=== PATIENT | male | born 1995 | race Caucasian/White ===

== ENCOUNTER 2021-07-03 17:32 | Emergency (ER) | payer SELFPAY ==
[2021-07-03 17:35] VITALS: PULSE 101; RESP 18; TEMP 37.1; O2SAT 98; BMI 25.1
[2021-07-03 17:38] VITALS: PULSE 101; RESP 18; O2SAT 98
[2021-07-03 17:41] VITALS: O2SAT 98
--- NOTE | 2021-07-03 18:17 | EKG12_ITS ---
Test Reason : SOB Blood Pressure : / mmHG Vent. Rate : 093 BPM Atrial Rate : 093 BPM P-R Int : 128 ms QRS Dur : 098 ms QT Int : 368 ms P-R-T Axes : 018 042 050 degrees QTc Int : 457 ms Normal sinus rhythm Normal ECG No previous ECGs available Confirmed by MARTÍNEZ CONTEH, BRANDT ([id number]), image editor CHUCK PAINTER ([id number]) on 07/12/2021 10:03:39 AM Referred By: IRVING Confirmed By:BRANDT SOLIZ MD
[2021-07-03] MEDS: 0.9% Normal Saline 1,000 ML 999 ML IV (18:41)
[2021-07-03] MEDS: LORazepam 2 MG/ML Syringe 1 MG IV ×2 (18:42→19:06)
[2021-07-03 18:53] LABS: Absolute Lymphocyte Count 1.63 X10^3/uL (0.83-4.51); Absolute Neutrophil Count 4.5 X10^3/uL (2.0-7.7); Basophil# 0.02 X10^3/uL; Basophil% 0.3 % (0-1); Eosinophil# 0.01 X10^3/uL; Eosinophils% 0.1 % (0-5); Hematocrit 42.1 % (40-54); Hemoglobin 15.1 g/dL (13.0-16.5); Lymphocyte # 1.63 X10^3/ul (0.83-4.51); Lymphocyte % 23.6 % (19-41); Mean Corp Hgb Conc 35.9 g/dL (32-36); Mean Corpuscular Hgb 31.7 pg (27.0-32.0); Mean Corpuscular Volume 88.4 fL (80-94); Mean Platelet Vol. 8.7 fl (6.2-12.0); Monocyte# 0.72 X10^3/uL; Monocyte% 10.4 % (0-10); NRBC Flagged by Analyzer 0 % (0-5); Neutrophil # 4.49 X10^3/uL (2.7-7.7); Neutrophil % 65.2 % (47-70); Platelet Count 342 K/mm3 (150-450); RBC Distribution Width SD 38.8 fl (35.1-43.9); Red Blood Count 4.76 M/mm3 (4.6-6.2); White Blood Count 6.9 K/mm3 (4.4-11.0)
--- NOTE | 2021-07-03 18:54 | CM.ED ---
MC Note Referral Source: Case Find Referral Reason: No insurance and No PCP SW met briefly with patient in his room. SW provided patient with list of [facility] Directory and Self Pay Packet. No other issues or concerns voiced. Plan: Provided PCP/Self Pay information Mckenzie MOREJON
--- NOTE | 2021-07-03 19:15 | RAD_ITS ---
STUDY: X-RAY CHEST REASON FOR EXAM: Male, 25 years old. Dyspnea. Numbness and tingling in both arms. Shortness of breath MAY knows and recent cough. Anxiety. TECHNIQUE: PA and lateral views of the chest. COMPARISON: None. FINDINGS: The lungs are clear and expanded. There is no demonstrated pleural abnormality. Normal size heart. Normal mediastinum and maye. Normal visualized pulmonary arteries. Normal visualized aortic arch and descending thoracic aorta. There is dextroscoliosis of the thoracic spine. Normal visualized ribs, clavicles, and shoulders. There is no demonstrated abnormality of the visualized soft tissue structures of the upper abdomen. RAD/Chest PA and Lateral IMPRESSION: No acute cardiopulmonary disease. Electronically Signed: César Carbajal DO at 19:35 EDT Tel [phone], Service support ,
[2021-07-03 19:18] LABS: Anion Gap 12 (5-15); BUN 6 mg/dL (7-18); BUN/Creat Ratio 6.9 RATIO (10-20); Calcium,Total 9.6 mg/dL (8.5-10.1); Chloride 101 mmol/L (98-107); Creatinine, Serum 0.87 mg/dL (0.70-1.30); EST Glomerular Filtration Rate 111 mL/min (>60); Est Glom Filt Rate - Afr Amer 134 mL/min (>60); Estimated Creatinine Clearance 135.84 ml/min; Glucose 81 mg/dL (74-106); Magnesium 1.9 mg/dL (1.6-2.6); Potassium 3.4 mmol/L (3.5-5.1); Sodium Level 139 mmol/L (136-145); Thyroid Stim Hormone (TSH) 2.32 uIU/mL (0.358-3.74)
[2021-07-03 20:01] VITALS: PULSE 90; RESP 16; O2SAT 99
--- NOTE | 2021-07-03 20:59 | EDS_ITS ---
HPI History of Present Illness Chief Complaint: Shortness of Breath Narrative Narrative: Patient is a 25-year-old male who states that today after leaving work he had sudden onset anxiety feelings with increased shortness of breath and contractures of his arms. He does report nicotine use but denies any known lung pathology. He also admits to having anxiety but never officially diagnosed by a psychiatrist or family doctor. He reports has been no new stressors and he denies any excessive stimulant such as caffeine or illicit drug. He reports he feels better at this time but with the event occurring was concerned presents for evaluation [facility] Medical History Alcohol abuse Anxiety Smoker Home Medications escitalopram oxalate [Lexapro] 10 mg PO DAILY #30 tab 07/03/21 [Rx Last Taken Unknown] Allergy/AdvReac Type Severity Reaction Status Date / Time No Known Allergies Allergy Verified 07/03/21 17:34 Social History Smoking Status: Current every day smoker tobacco type: e-cigarettes ROS ROS ED Constitutional Constitutional ED: Denies chills or fever(s) ENT ENT ED: Denies sore throat Cardiovascular Cardiovascular: Reports palpitations and racing heartbeat; Denies chest pain Respiratory/Chest Respiratory/Chest: Reports dyspnea; Denies cough Gastrointestinal Gastrointestinal: Denies abdominal pain, diarrhea, nausea or vomiting Genitourinary Genitourinary ED: Denies dysuria Musculoskeletal Musculoskeletal: Reports myalgias Integumentary Denies rash Neurologic Neurologic: Denies headache(s) Psychiatric Psychiatric: Reports anxiety Hematologic/Lymphatic Hematologic/Lymphatic: Denies easy bleeding or easy bruising EXAM Physical Exam Const Vital Signs: 07/03/21 17:35 07/03/21 17:38 07/03/21 17:41 Temperature 98.8 F Temperature Source Temporal Pulse Rate 101 H 101 H Respiratory Rate 18 18 Respiratory Effort Normal Respiratory Depth Normal Respiratory Pattern Normal Blood Pressure Pulse Ox 98 98 Oxygen Delivery Method Room Air Room Air 07/03/21 20:01 07/03/21 21:11 Temperature Temperature Source Pulse Rate 90 90 Respiratory Rate 16 14 Respiratory Effort Respiratory Depth Respiratory Pattern Blood Pressure 130/78 H Pulse Ox 99 99 Oxygen Delivery Method Room Air Positive well nourished and well developed General Appearance ED: well developed HEENT Reports moist mucous membranes HEENT Narrative: No tongue or lip swelling no oral lesions no airway edema or compromise Eyes PERRL and EOMs intact bilaterally Neck supple Chest Wall palpation of chest normal Resp normal respiratory effort and clear to auscultation bilaterally Cardio regular rate and regular rhythm GI normal to inspection, nondistended, normoactive bowel sounds, non-tender and non-distended Auscultation: normoactive bowel sounds Palpation: soft Extremity normal to inspection Extremity Narrative: No asymmetric edema no pitting edema negative Homans' sign bilaterally Neuro oriented x3 and CN's II-XII intact bilaterally Sensorium / Orientation: alert Motor Exam: strength 5/5 throughout Psych Mood & Affect: anxious Skin no rashes or lesions noted MDM MDM MDM Narrative Medical decision making narrative: Patient to the ER with stable vitals and spontaneous resolution of symptoms. However during the physical exam he stated he was beginning to feel similar symptoms to when he had the attack at work. Therefore patient underwent a basic cardiac work-up. Labs revealed no clinically significant findings and chest x-ray revealed no obvious infiltrate pneumothorax or pleural effusion. Patient was given IV fluids and 2 mg of Ativan and did report feeling better. Therefore this time with overall negative work-up I do feel her symptoms are anxiety related and he will be placed on Lexapro and is safe for discharge Lab Data Attestation: I reviewed the patient's lab results. Labs: Laboratory Results - last 24 hr 07/03/21 07/03/21 18:40 18:40 WBC 6.9 RBC 4.76 Hgb 15.1 Hct 42.1 MCV 88.4 MCH 31.7 MCHC 35.9 RDW Std Deviation 38.8 RDW Coeff of Lance 12.0 Plt Count 342 MPV 8.7 Immature Gran % (Auto) 0.400 Neut % (Auto) 65.2 Lymph % (Auto) 23.6 [place] % (Auto) 10.4 H Eos % (Auto) 0.1 Baso % (Auto) 0.3 Absolute Neuts (auto) 4.5 Absolute Lymphs (auto) 1.63 Nucleated RBC % 0 Sodium 139 Potassium 3.4 L Chloride 101 Carbon Dioxide 26.0 Anion Gap 12 BUN 6 L Creatinine 0.87 Estim Creat Clear Calc 135.84 Est GFR (MDRD) Af Amer 134 Est GFR (MDRD) Non-Af 111 BUN/Creatinine Ratio 6.9 L Glucose 81 Calcium 9.6 Magnesium 1.9 TSH 2.32 Radiography Diagnostic Testing: Clinical Impression(s) from Imaging Studies Chest X-Ray 07/03/21 19:15 IMPRESSION: No acute cardiopulmonary disease. Electronically Signed: César Carbajal DO at 19:35 EDT Tel [phone], Service support , Discharge Plan Triage Chief Complaint: Shortness of Breath ED Provider: Anjel Gutiérrez Dx/Rx/DC Orders Clinical Impression: Anxiety attack Instructions: ED Anxiety Reaction Prescriptions: New escitalopram oxalate [Lexapro] 10 mg tablet 10 mg PO DAILY Qty: 30 RF: 1 Primary Care Provider: Care Physician,No Primary Referrals: Peyman Martínez MD [STAFF PHYSICIAN] - 3-5 Days if not improving Care Physician,No Primary [Primary Care Provider] - Disposition Disposition: Home, Self Care Discharge Date/Time: 07/03/21 21:12
[2021-07-03 21:11] VITALS: BP 130/78; PULSE 90; RESP 14; O2SAT 99
== END 2021-07-03 21:12 | disposition home or self-care (01) ==
PROVIDERS: Emergency Provider Emergency Medicine
DX: F41.9 Anxiety disorder, unspecified (principal); F17.210 Nicotine dependence, cigarettes, uncomplicated; Z79.899 Other long term (current) drug therapy
CPT/HCPCS: 71046; 80048; 83735; 84443; 85025; 93005; 96361; 96374; 96376; 99283; J7030; A4216

== ENCOUNTER 2022-02-15 18:56 | Inpatient (IN) | payer OTHER, SELFPAY ==
[2022-02-15 18:57] VITALS: BP 142/103; PULSE 108; RESP 18; TEMP 36.4; O2SAT 97; BMI 24.4
[2022-02-15 19:11] VITALS: RESP 16
[2022-02-15 19:26] LABS: Absolute Lymphocyte Count 1.46 X10^3/uL (0.83-4.51); Absolute Neutrophil Count 3.4 X10^3/uL (2.0-7.7); Basophil# 0.04 X10^3/uL; Basophil% 0.7 % (0-1); Eosinophil# 0.04 X10^3/uL; Eosinophils% 0.7 % (0-5); Hematocrit 46.6 % (40-54); Hemoglobin 16.7 g/dL (13.0-16.5); Lymphocyte # 1.46 X10^3/ul (0.83-4.51); Lymphocyte % 25.5 % (19-41); Mean Corp Hgb Conc 35.8 g/dL (32-36); Mean Corpuscular Hgb 33.3 pg (27.0-32.0); Mean Corpuscular Volume 92.8 fL (80-94); Mean Platelet Vol. 9.3 fl (6.2-12.0); Monocyte# 0.78 X10^3/uL; Monocyte% 13.6 % (0-10); NRBC Flagged by Analyzer 0 % (0-5); Neutrophil % 59.3 % (47-70); Platelet Count 247 K/mm3 (150-450); RBC Distribution Width CV 11.9 % (11.6-14.6); RBC Distribution Width SD 40.5 fl (35.1-43.9); Red Blood Count 5.02 M/mm3 (4.6-6.2); White Blood Count 5.7 K/mm3 (4.4-11.0)
--- NOTE | 2022-02-15 19:31 | CM.ED ---
Addendum entered by Charlette Beth 02/15/22 19:45: MC called Lizbeth, treatment navigator, and provided referral. Original Note: Social Work Note Reason for referral: Detox SW met with pt. Pt confirms he is at [facility] for detox. SW explained rules of the detox program. Pt states that he was drinking Rum and Coke and Liquor. Pt states that he used to drink a lot of beer. Pt states he would drink to cope with his anxiety. Pt states he has history of anxiety, denied any other Mental Health. Pt denied any history of suicidal thoughts/plans/ideations. Pt denied any current suicidal thoughts/plans/ideations. Pt states the last time I was here I had a panic attack and was prescribed Lexapro and then I read the side effects and one of the side effects was suicidal thoughts. Pt states so I was thinking about the suicidal thoughts. SW asked pt if he had any current suicidal thoughts and pt states only thinking about don't want to be here. SW informed pt that he can leave anytime during program but if it is before the physician discharges pt, it would be against AMA. Pt states that his arms are starting to get tingling. Pt states that he called his mother and girlfriend. SW informed pt that it sounds like he has good support then. Pt states that he has a lot of anxiety. Pt became teary eyed during conversation with this worker. SW asked pt about self pay and no PCP. Pt confirms he has no insurance and no PCP. SW provided pt with list of PCP and self-pay packets. Charlette Beth COOPERATIVE EDUCATION DIRECTOR, RN LACTATION
[2022-02-15 19:46] LABS: ALB/GLOB Ratio 1.1 RATIO (0.9-2.4); AST(SGOT) 317 U/L (15-37); Alanine Aminotransfer ALT/SGPT 260 U/L (16-61); Albumin, Serum 4.4 g/dL (3.2-5.0); Alkaline Phosphatase 86 U/L (45-117); Anion Gap 9 (5-15); BUN 7 mg/dL (7-18); BUN/Creat Ratio 7.7 RATIO (10-20); Calcium,Total 9.2 mg/dL (8.5-10.1); Chloride 103 mmol/L (98-107); Creatinine, Serum 0.91 mg/dL (0.70-1.30); EST Glomerular Filtration Rate 105 mL/min (>60); Est Glom Filt Rate - Afr Amer 127 mL/min (>60); Estimated Creatinine Clearance 128.72 ml/min; Glucose 122 mg/dL (74-106); Lipase 109 U/L (73-393); Protein, Total 8.4 g/dL (6.4-8.2); Sodium Level 140 mmol/L (136-145)
[2022-02-15 19:56] LABS: Amphetamine Urine VISTA NEGATIVE (<1000 ng/mL); Barbiturate Urine VISTA NEGATIVE (< 200 ng/mL); Benzodiazepine Urine VISTA NEGATIVE (< 200 ng/mL); Cocaine Urine VISTA NEGATIVE (< 300 ng/mL); Ecstacy Urine VISTA NEGATIVE (< 500 ng/mL); Methadone Urine VISTA NEGATIVE (< 300 ng/mL); PCP Urine VISTA NEGATIVE (< 25 ng/mL); THC Urine VISTA NEGATIVE (< 50 ng/mL); Vista UDS pH Range 8
[2022-02-15 20:15] VITALS: BP 146/100; PULSE 100; RESP 18; TEMP 36.6; O2SAT 99
[2022-02-15] MEDS: LORazepam 2 MG/ML Syringe IV (20:21)
[2022-02-15] MEDS: 0.9% Normal Saline 1,000 ML 999 ML IV (20:21)
--- NOTE | 2022-02-15 20:31 | HP.PCM.HOS_ITS ---
HPI - General HPI Narrative TERESA LARIOS, is a 26 M with a significant history of alcoholic abuse and tobacco abuse who presents to the emergency department for help with alcohol detoxification. Last time patient drank was less than half of an hour before presentation. Patient started drinking at about age 17. He drinks beer and li quor. He reports that he is unable to count how much alcohol he drinks per day. He reported withdrawal symptoms of anxiety for which reason he received Ativan in the ED. He reports going to an outpatient alcohol withdrawal program ([facility]) the earlier part of the year. [facility], [facility] Medical History Alcohol abuse Anxiety Smoker Home Medications NK 02/15/22 [History Last Taken Unknown] Allergy/AdvReac Type Severity Reaction Status Date / Time No Known Allergies Allergy Verified 02/15/22 18:59 Family History Other Alcoholism Anxiety Arthritis Surgical History Hx of eye surgery Social History Smoking Status: Current every day smoker tobacco type: e-cigarettes ROS ROS Narrative Constitutional: Denies fever, chills, fatigue, anorexia and change in weight Eyes: Denies blurry vision, change in eye color, change in vision, discharge fro m eye(s), double vision, erythema, eye pain, loss of vision or other HEENT: Denies abnormal hearing, dysphagia, ear pain, epistaxis, headache(s), hearing loss, nasal congestion, nasal discharge, post nasal drip, sinus pressure, sore throat or other Cardiovascular: Denies chest pain or palpitations. Denies dyspnea on exertion, orthopnea and paroxysmal nocturnal dyspnea Respiratory/Chest: Denies cough, excessive phlegm production, shortness of breath with exertion and wheezing Gastrointestinal: Denies abdominal pain, coffee ground emesis, constipation, diarrhea, dyspepsia, hematemesis, hematochezia, loose stools, melena, nausea, vomiting or other Genitourinary: Denies burning urination, difficulty urinating, dysuria, hematuria, nocturia, urinary frequency, urinary hesitancy, urinary incontinence, urinary urgency or other Musculoskeletal: Denies arthralgias, back pain, joint pain, joint stiffness, joint swelling, myalgias, neck pain or other Neurologic: Denies abnormal gait, abnormal speech, confusion, disequilibrium, dizziness, focal weakness, numbness, paresthesias, seizure-like activity, seizures, syncope, tingling, tremor(s) or other Psychiatric: Reports anxiety. Denies homicidal ideation, suicidal ideation or other Endocrinology: Denies change in body appearance, cold intolerance, excessive sweating, heat intolerance, polydipsia, polyuria or other Hematologic/Lymphatic: Denies anemia, easy bleeding, easy bruising, lymphadenopathy or other Integumentary: Denies rashes Allergic/Immunologic: Denies rhinitis, hives, eczema, or other Vital Signs Vital Signs Vital Signs: 02/15/22 18:57 02/15/22 19:11 02/15/22 20:15 Temperature 97.6 F L 97.9 F Temperature Source Temporal Temporal Pulse Rate 108 H 100 Respiratory Rate 18 16 18 Blood Pressure 142/103 H 146/100 H Blood Pressure Mean 116 115 Pulse Ox 97 99 Oxygen Delivery Method Room Air Room Air Weight Weight: 79.379 kg Body Mass Index (BMI) 24.4 Physical Exam Narrative Physical exam: General: Well-nourished, well-developed. Head: Normocephalic, atraumatic, no tenderness Eyes: Vision is grossly intact. EOMI ENT, no trauma, moist mucous membranes, no rhinorrhea Neck: Nontender, full range of motion, no spinal tenderness, deformities, step- off CVS: Regular rate and rhythm. S1-S2 present. No murmur, gallop or rub. Respiratory : clear to auscultation bilaterally, chest wall nontender, no wheezi ng Abdomen: Soft, nontender, nondistended, normal bowel sounds, no masses : Deferred Back: Nontender, no CVA tenderness, no midline spinal tenderness, deformities, step-offs Extremities: Nontender full range of motion, no trauma Skin: Normal color, no trauma, abrasions Neuro: Alert, oriented, cranial nerves II through XII grossly intact. Psychiatry: Normal mood. Normal affect. Not depressed. Not anxious. Results Lab / Micro Data Result Diagrams: 02/15/22 19:20 02/15/22 19:20 Labs: Laboratory Results - last 24 hr 02/15/22 19:15: Urine Opiates Screen NEGATIVE, Urine Methadone Screen NEGATIVE, Ur Barbiturates Screen NEGATIVE, Ur Phencyclidine Scrn NEGATIVE, Ur Amphetamines Screen NEGATIVE, MDMA (Ecstasy) Screen NEGATIVE, U Benzodiazepines Scrn NEGATIVE, Urine Cocaine Screen NEGATIVE, U Cannabinoids Screen NEGATIVE, Ur Drug Screen Comment 02/15/22 19:20: WBC 5.7, RBC 5.02, Hgb 16.7 H, Hct 46.6, MCV 92.8, MCH 33.3 H, MCHC 35.8, RDW Std Deviation 40.5, RDW Coeff of Lance 11.9, Plt Count 247, MPV 9.3, Immature Gran % (Auto) 0.200, Neut % (Auto) 59.3, Lymph % (Auto) 25.5, [place] % (Auto) 13.6 H, Eos % (Auto) 0.7, Baso % (Auto) 0.7, Absolute Neuts (auto) 3.4, Absolute Lymphs (auto) 1.46, Nucleated RBC % 0 02/15/22 19:20: Sodium 140, Potassium 4.0, Chloride 103, Carbon Dioxide 28.0, Anion Gap 9, BUN 7, Creatinine 0.91, Estim Creat Clear Calc 128.72, Est GFR (MDRD) Af Amer 127, Est GFR (MDRD) Non-Af 105, BUN/Creatinine Ratio 7.7 L, Glu cose 122 H, Calcium 9.2, Total Bilirubin 1.10 H, AST 317 H, ALT 260 H, Alkaline Phosphatase 86, Total Protein 8.4 H, Albumin 4.4, Globulin 4.0, Albumin/Globulin Ratio 1.1, Lipase 109 02/15/22 19:20: Ethyl Alcohol 285.0 Assessment & Plan Assessment/Plan (1) Desire for detoxification: (2) Tobacco abuse: PLAN: Alcohol dependence and desire for detoxification Urine toxicology reviewed showed alcohol level of 285. Patient be started on phenobarbital and other adjunctive medications: Gabapentin as needed; dicyclomine as needed; Vistaril as needed; Imodium as needed; trazodone as needed; Zofran as needed; scheduled thiamine; and schedule folic acid. Monitor CIWA score Elevated liver enzymes AST of 317; ALT of 260. AST over ALT is 1.22. A total bilirubin of 1.1. Likel y secondary to alcoholic liver disease. Trend liver enzymes. Elevated blood pressure the diagnosis of hypertension Likely secondary to alcoholism. Detoxification plan as above. Trend blood pressure. Tobacco abuse CBC showed mild erythrocytosis. Counseled Nicotine patch prescribed. DVT prophylaxis Low risk Encourage to ambulate Charges/Coding Visit Charges Inpatient E&M: 10304 Init Hosp L2
--- NOTE | 2022-02-15 21:16 | EDS_ITS ---
HPI History of Present Illness Chief Complaint: ETOH Intox Narrative Narrative: 26-year-old male presenting for alcohol detox. He states he drank just prior to arrival. Patient states that he has been drinking for a long time. He was able to self detox at home previously but states he gets shaky and feels bad for a couple of days. Currently he has last week was 30 minutes ago and he states he already feels shaky. He is presenting for detox because he wants to get off of alcohol. Denies other drug abuse. He does state that he drinks several beers a day with shots as well. He states is becoming all day thing [facility] Medical History Alcohol abuse Anxiety Smoker Home Medications NK 02/15/22 [History Last Taken Unknown] Allergy/AdvReac Type Severity Reaction Status Date / Time No Known Allergies Allergy Verified 02/15/22 18:59 Family History Other Alcoholism Anxiety Arthritis Surgical History Hx of eye surgery Social History Smoking Status: Current every day smoker tobacco type: e-cigarettes ROS ROS ED ROS Narrative Shakiness Constitutional Constitutional ED: Denies chills, fever(s) or sweats Eyes Eyes: Denies blurry vision or change in vision ENT ENT ED: Denies ear pain or sore throat Cardiovascular Cardiovascular: Denies chest pain, palpitations or racing heartbeat Respiratory/Chest Respiratory/Chest: Denies cough, dyspnea or sputum Gastrointestinal Gastrointestinal: Denies abdominal pain, constipation, diarrhea, nausea or vomiting Genitourinary Genitourinary ED: Denies dysuria, hematuria or urinary frequency Musculoskeletal Musculoskeletal: Denies arthralgias, myalgias or neck pain Integumentary Denies abscess, Abrasions or rash Neurologic Neurologic: Denies headache(s), paresthesias or weakness Psychiatric Psychiatric: Denies anxiety, depression, suicidal ideation or suicidal thoughts Endocrine Endocrinology: Denies polydipsia or polyuria EXAM Physical Exam Const Vital Signs: 02/15/22 18:57 02/15/22 19:11 02/15/22 20:15 Temperature 97.6 F L 97.9 F Temperature Source Temporal Temporal Pulse Rate 108 H 100 Respiratory Rate 18 16 18 Blood Pressure 142/103 H 146/100 H Blood Pressure Mean 116 115 Pulse Ox 97 99 Oxygen Delivery Method Room Air Room Air Positive well nourished General Appearance ED: NAD; Negative for pallor HEENT Reports moist mucous membranes atraumatic Eyes PERRL and EOMs intact bilaterally Resp normal respiratory effort and clear to auscultation bilaterally Cardio regular rate and regular rhythm GI soft to palpation, non-tender and non-distended Neuro oriented x3, CN's II-XII intact bilaterally and no sensory deficits noted Sensorium / Orientation: alert Motor Exam: strength 5/5 throughout Psych mental status grossly normal Skin General Skin Exam: Negative for jaundice or pallor Lesions: no lesions Rashes: no rashes MDM MDM MDM Narrative Medical decision making narrative: Patient presenting for EtOH detox. He states he is feeling shaky and was given 2 g of Ativan. CBC is unremarkable. CMP does show normal renal function and electrolytes. His total bilirubin is 1.10. AST 317, ALT 260. Lipase within normal limits. Urine drug screen is negative. EtOH 285. Patient feels improved after Ativan and IV fluids. I discussed with hospitalist for admission. Impression: 1. EtOH intoxication 2. EtOH abuse 3. Presentation for EtOH detox. 4. Elevated LFTs Lab Data Attestation: I reviewed the patient's lab results. Labs: Laboratory Results - last 24 hr 02/15/22 02/15/22 02/15/22 19:15 19:20 19:20 WBC 5.7 RBC 5.02 Hgb 16.7 H Hct 46.6 MCV 92.8 MCH 33.3 H MCHC 35.8 RDW Std Deviation 40.5 RDW Coeff of Lance 11.9 Plt Count 247 MPV 9.3 Immature Gran % (Auto) 0.200 Neut % (Auto) 59.3 Lymph % (Auto) 25.5 [place] % (Auto) 13.6 H Eos % (Auto) 0.7 Baso % (Auto) 0.7 Absolute Neuts (auto) 3.4 Absolute Lymphs (auto) 1.46 Nucleated RBC % 0 Sodium 140 Potassium 4.0 Chloride 103 Carbon Dioxide 28.0 Anion Gap 9 BUN 7 Creatinine 0.91 Estim Creat Clear Calc 128.72 Est GFR (MDRD) Af Amer 127 Est GFR (MDRD) Non-Af 105 BUN/Creatinine Ratio 7.7 L Glucose 122 H Calcium 9.2 Total Bilirubin 1.10 H AST 317 H ALT 260 H Alkaline Phosphatase 86 Total Protein 8.4 H Albumin 4.4 Globulin 4.0 Albumin/Globulin Ratio 1.1 Lipase 109 Urine Opiates Screen NEGATIVE Urine Methadone Screen NEGATIVE Ur Barbiturates Screen NEGATIVE Ur Phencyclidine Scrn NEGATIVE Ur Amphetamines Screen NEGATIVE MDMA (Ecstasy) Screen NEGATIVE U Benzodiazepines Scrn NEGATIVE Urine Cocaine Screen NEGATIVE U Cannabinoids Screen NEGATIVE Ur Drug Screen Comment Ethyl Alcohol 02/15/22 19:20 WBC RBC Hgb Hct MCV MCH MCHC RDW Std Deviation RDW Coeff of Lance Plt Count MPV Immature Gran % (Auto) Neut % (Auto) Lymph % (Auto) [place] % (Auto) Eos % (Auto) Baso % (Auto) Absolute Neuts (auto) Absolute Lymphs (auto) Nucleated RBC % Sodium Potassium Chloride Carbon Dioxide Anion Gap BUN Creatinine Estim Creat Clear Calc Est GFR (MDRD) Af Amer Est GFR (MDRD) Non-Af BUN/Creatinine Ratio Glucose Calcium Total Bilirubin AST ALT Alkaline Phosphatase Total Protein Albumin Globulin Albumin/Globulin Ratio Lipase Urine Opiates Screen Urine Methadone Screen Ur Barbiturates Screen Ur Phencyclidine Scrn Ur Amphetamines Screen MDMA (Ecstasy) Screen U Benzodiazepines Scrn Urine Cocaine Screen U Cannabinoids Screen Ur Drug Screen Comment Ethyl Alcohol 285.0 Discharge Plan Triage Chief Complaint: ETOH Intox Other Complaint: Substance Abuse ED Provider: Wilman Fox Dx/Rx/DC Orders Primary Care Provider: Care Physician,No Primary
[2022-02-15 21:34] VITALS: BMI 23.7
[2022-02-15 21:47] VITALS: BP 142/101; PULSE 80; RESP 16; TEMP 36.5; O2SAT 99
[2022-02-15] MEDS: Phenobarbital 32.4 MG Tablet 64.8 MG PO (22:01)
[2022-02-15] MEDS: Ondansetron 8 MG Tablet PO (22:01)
[2022-02-15] MEDS: traZODone 100 MG Tablet PO (22:01)
[2022-02-16] VITALS (7 sets, daily range): BP systolic 117–164; BP diastolic 78–107; PULSE 72–99; RESP 16–18; TEMP 36.8–37.2; O2SAT 96–100
[2022-02-16] MEDS: Phenobarbital 32.4 MG Tablet 64.8 MG PO ×6 (02:16→20:59)
[2022-02-16] MEDS: hydrOXYzine PAM 25 MG Capsule 50 MG PO ×2 (06:39→20:58)
[2022-02-16 06:51] LABS: AST(SGOT) 243 U/L (15-37); Alanine Aminotransfer ALT/SGPT 220 U/L (16-61); Alkaline Phosphatase 69 U/L (45-117); Bilirubin, Direct 0.47 mg/dL (0.00-0.30); Globulin 3.4 g/dL (2.2-4.2); Protein, Total 7.4 g/dL (6.4-8.2)
[2022-02-16] MEDS: Folic Acid 1 MG Tablet PO (08:28)
[2022-02-16] MEDS: Thiamine Hydrochloride 100 MG Tablet PO (08:28)
--- NOTE | 2022-02-16 11:52 | ADDICTION ---
This fiction and nonfiction prose writer met with PT to conduct ASAM, MSE, AUDIT assessments and to plan for d/c. PT A+Ox4 and participated actively. All assessments completed, faxed to [facility] and placed in PT's chart. PT plans to f/u with individual counselor at [facility] for follow-up counseling services. PT did not indicate a need for transportation post d/c from [facility].
[2022-02-16] MEDS: Nicotine Polacrilex 2 MG GUM PO (13:31)
[2022-02-16] MEDS: Dicyclomine 10 MG Capsule 20 MG PO (13:31)
--- NOTE | 2022-02-16 14:28 | PCM.PN.HOSP ---
Subjective Subjective Patient reports that he feels much better. Still has a fine tremor. Some mild nausea and vomiting this morning however the nausea has resolved at this time. We discussed his probable discharge date for Saturday and that addiction medicine would likely see him today. Objective Data Objective Data Vital Signs: Vital Signs Temp Pulse Resp BP Pulse Ox 98.9 F 99 18 133/87 H 99 02/16/22 14:01 02/16/22 14:01 02/16/22 14:01 02/16/22 14:01 02/16/22 14:01 Oxygen Delivery Method Room Air Weight: 76.9 kg Body Mass Index (BMI) 23.7 Intake & Output: Intake and Output for Last 24 Hours 02/14/22 02/15/22 02/16/22 23:59 23:59 23:59 Intake Total 1000 / 1200 800 / 800 Balance 1000 / 1200 800 / 800 Lab / Micro Data Result Diagrams: 02/15/22 19:20 02/15/22 19:20 Labs: Laboratory Results - last 24 hr 02/15/22 19:15: Urine Opiates Screen NEGATIVE, Urine Methadone Screen NEGATIVE, Ur Barbiturates Screen NEGATIVE, Ur Phencyclidine Scrn NEGATIVE, Ur Amphetamines Screen NEGATIVE, MDMA (Ecstasy) Screen NEGATIVE, U Benzodiazepines Scrn NEGATIVE, Urine Cocaine Screen NEGATIVE, U Cannabinoids Screen NEGATIVE, Ur Drug Screen Comment 02/15/22 19:20: WBC 5.7, RBC 5.02, Hgb 16.7 H, Hct 46.6, MCV 92.8, MCH 33.3 H, MCHC 35.8, RDW Std Deviation 40.5, RDW Coeff of Lance 11.9, Plt Count 247, MPV 9.3, Immature Gran % (Auto) 0.200, Neut % (Auto) 59.3, Lymph % (Auto) 25.5, [place] % (Auto) 13.6 H, Eos % (Auto) 0.7, Baso % (Auto) 0.7, Absolute Neuts (auto) 3.4, Absolute Lymphs (auto) 1.46, Nucleated RBC % 0 02/15/22 19:20: Sodium 140, Potassium 4.0, Chloride 103, Carbon Dioxide 28.0, Anion Gap 9, BUN 7, Creatinine 0.91, Estim Creat Clear Calc 128.72, Est GFR (MDRD) Af Amer 127, Est GFR (MDRD) Non-Af 105, BUN/Creatinine Ratio 7.7 L, Glucose 122 H, Calcium 9.2, Total Bilirubin 1.10 H, AST 317 H, ALT 260 H, Alkaline Phosphatase 86, Total Protein 8.4 H, Albumin 4.4, Globulin 4.0, Albumin/Globulin Ratio 1.1, Lipase 109 02/15/22 19:20: Ethyl Alcohol 285.0 02/16/22 06:05: Total Bilirubin 1.80 H, Direct Bilirubin 0.47 H, AST 243 H, ALT 220 H, Alkaline Phosphatase 69, Total Protein 7.4, Albumin 4.0, Globulin 3.4 Physical Exam Const alert, oriented x3, no apparent distress, average body habitus, healthy appearing and well nourished Constitutional Narrative: Young white male sitting up in bed, appears comfortable and nontoxic, nursing at bedside Exam Limitations: no limitations HEENT head/scalp atraumatic and moist oral mucous membranes Head and Scalp: normocephalic Resp normal respiratory effort, no retractions, no use of accessory muscles and clear to auscultation bilaterally Auscultation: Negative for crackles, rales, rhonchi or wheezes Cardio regular rate, regular rhythm, S1 normal heart sound, S2 normal heart sound, no murmurs, no rub, no gallops, no clicks and no JVD GI normal to inspection, nondistended, normoactive bowel sounds, soft to palpation, non-tender and non-distended Extremity no clubbing, cyanosis or edema Peripheral Pulses: Yes pulses 2+ throughout Neuro oriented x3, moves all extremities and no focal motor deficits Sensorium / Orientation: awake and alert Speech: speech normal Assessment & Plan Assessment/Plan (1) Tobacco abuse: (2) Desire for detoxification: PLAN: Acute alcohol withdrawal -Patient has been a heavy drinker since he was 17 years old -Last drink was just prior to presentation -He is unsure how much he drinks daily but states it is a lot -Continue phenobarbital taper -Continue thiamine and folate -Continue supportive medications -Patient was evaluated by 180 earlier this morning and the plan is for him to follow-up as an outpatient with an individual counselor at [facility] at discharge. -Anticipate discharge to be on Saturday as long as the patient continues to do well clinically Tobacco abuse -Continue nicotine patch -Add as needed nicotine gum -Recommend cessation DVT prophylaxis -Low risk -Early ambulation CODE STATUS -Full code Charges/Coding Visit Charges Inpatient E&M: 39229 Subs Hosp L2
--- NOTE | 2022-02-16 15:02 | CHAPLAIN ---
Type of Pastoral Visit _x__ Initial Visit ___ Follow-up Visit ___ On-call Visit ___ General Patient Visit ___ Spiritual Assessment ___ Family Conference ___ Bereavement ___ Rapid Response ___ Code Blue ___ Other (describe below) Pastoral Care Referral From __x_ Patient ___ Family ___ Nurse ___ Physician ___ Transportation Refrigeration Technician ___ Peg Driver ___ Other (describe below) Sacrament/Intervention _x__ Active listening ___ Anointing ___ Denominational ___ Bereavement ___ Communion _x__ Gretta exploration ___ _x__ Life review _x__ Prayer ___ Reconciliation ___ Sacrament of Sick _x__ Supportive presence ___ Wedding ___ Other (describe below) Pastoral Comments long conversation; patient is welcoming and open to review his life, reason for detox, and support systems; pt has goal to get a better paying job with benefits that would help his stress levels; pt states that he has family support and a girlfriend; pt goes to yarsanism with his girlfriend and he is interested in developing his spiritual life; pt expresses thankfulness for time spent as he gets bored easily; prayer welcomed
[2022-02-16] MEDS: traZODone 100 MG Tablet PO (20:59)
[2022-02-17] VITALS (7 sets, daily range): BP systolic 103–148; BP diastolic 71–101; PULSE 67–85; RESP 16–18; TEMP 36.7–37.1; O2SAT 96–100
[2022-02-17] MEDS: Phenobarbital 32.4 MG Tablet 64.8 MG PO ×6 (02:35→21:29)
[2022-02-17] MEDS: Folic Acid 1 MG Tablet PO (09:15)
[2022-02-17] MEDS: Thiamine Hydrochloride 100 MG Tablet PO (09:15)
[2022-02-17] MEDS: Nicotine Polacrilex 2 MG GUM PO ×2 (09:50→18:33)
--- NOTE | 2022-02-17 10:49 | PCM.PN.HOSP ---
Subjective Subjective No significant issues overnight. Patient still complains of some mild tremor but otherwise has no withdrawal symptoms. Appetite has been good. Plan remains plan for discharge tomorrow as long as patient maintains clinical stability. Objective Data Objective Data Vital Signs: Vital Signs Temp Pulse Resp BP Pulse Ox 98.1 F 67 16 103/71 100 02/17/22 09:05 02/17/22 09:05 02/17/22 09:05 02/17/22 09:05 02/17/22 09:05 Oxygen Delivery Method Room Air Weight: 76.9 kg Body Mass Index (BMI) 23.7 Intake & Output: Intake and Output for Last 24 Hours 02/15/22 02/16/22 02/17/22 23:59 23:59 23:59 Intake Total 1000 / 1200 800 / 800 1000 / 1000 Balance 1000 / 1200 800 / 800 1000 / 1000 Lab / Micro Data Result Diagrams: 02/15/22 19:20 02/15/22 19:20 Physical Exam Const alert, oriented x3, no apparent distress, average body habitus, healthy appearing and well nourished Constitutional Narrative: Young white male lying prone in bed sleeping, awakens easily, nontoxic and appears comfortable Exam Limitations: no limitations HEENT head/scalp atraumatic and moist oral mucous membranes Head and Scalp: normocephalic Resp normal respiratory effort, no retractions, no use of accessory muscles and clear to auscultation bilaterally Auscultation: Negative for crackles, rales, rhonchi or wheezes Cardio regular rate, regular rhythm, S1 normal heart sound, S2 normal heart sound, no murmurs, no rub, no gallops, no clicks and no JVD GI normal to inspection, nondistended, normoactive bowel sounds, soft to palpation, non-tender and non-distended Extremity no clubbing, cyanosis or edema Peripheral Pulses: Yes pulses 2+ throughout Neuro oriented x3, moves all extremities and no focal motor deficits Sensorium / Orientation: awake and alert Speech: speech normal Assessment & Plan Assessment/Plan (1) Tobacco abuse: (2) Desire for detoxification: PLAN: Acute alcohol withdrawal -Patient has been a heavy drinker since he was 17 years old -Last drink was just prior to presentation -He is unsure how much he drinks daily but states it is a lot -Continue phenobarbital taper -Continue thiamine and folate -Continue supportive medications -Patient was evaluated by 180 earlier on 02/16/2022 and the plan is for him to follow-up as an outpatient with an individual counselor at [facility] at discharge. -Anticipate discharge to be on Saturday as long as the patient continues to do well clinically Tobacco abuse -Continue nicotine patch -Add as needed nicotine gum -Recommend cessation DVT prophylaxis -Low risk -Early ambulation CODE STATUS -Full code Charges/Coding Visit Charges Inpatient E&M: 41586 Subs Hosp L2
[2022-02-17] MEDS: 0.9% Saline Lock 10 ML Syringe IV (21:28)
[2022-02-17] MEDS: hydrOXYzine PAM 25 MG Capsule 50 MG PO (21:29)
[2022-02-17] MEDS: traZODone 100 MG Tablet PO (21:29)
[2022-02-18 01:25] VITALS: BP 113/67; PULSE 62; RESP 16; TEMP 36.6; O2SAT 99
[2022-02-18] MEDS: Phenobarbital 32.4 MG Tablet 64.8 MG PO ×2 (01:29→05:31)
[2022-02-18 05:27] VITALS: BP 106/75; PULSE 70; RESP 16; TEMP 36.7; O2SAT 100
[2022-02-18] MEDS: hydrOXYzine PAM 25 MG Capsule 50 MG PO (05:31)
[2022-02-18 07:32] VITALS: BP 126/89; PULSE 65; RESP 16; TEMP 36.7; O2SAT 99
[2022-02-18] MEDS: Thiamine Hydrochloride 100 MG Tablet PO (07:40)
[2022-02-18] MEDS: Folic Acid 1 MG Tablet PO (07:40)
[2022-02-18] MEDS: Acetaminophen 500 MG Tablet 1000 MG PO (07:49)
--- NOTE | 2022-02-18 09:20 | DS.PCM_ITS ---
Providers Date of Admission: 02/15/22 Date of Discharge: 02/18/22 Primary Care Physician: Kaia Primary Care Phys Reason For Visit: DESIRE FOR DETOXIFICATION Diagnosis Discharge Diagnosis (1) Tobacco abuse: Status: Acute Code(s): Z72.0 - Tobacco use (2) Desire for detoxification: Status: Acute Medications at Discharge Home Medications NK 02/15/22 Hospital Course Operations None Procedures None Summary of Care Provided Minutes Spent on Discharge: 25 Hospital Course: Mr. Franco is a 26-year-old white male who presents emergency department at [facility] on 02/15/2021 requesting detox from alcohol. Patient states he has a significant history of alcohol abuse and indicates has been drinking since he was about 17 years old. He is unable to calculate exactly how much alcohol he drinks per day but he states it is a lot. He drinks both beer and liquor. He also smokes tobacco. He presented to the emergency department complaining of significant anxiety for which he received Ativan in the emergency department and had participated in outpatient withdrawal program earlier this year but had relapsed. He was admitted to the medical surgical floor and initiated on a phenobarbital taper along with thiamine and folate as well as supportive medications for symptom management. He was given a nicotine patch for tobacco withdrawal. Patient did well clinically and had no significant issues. His vital signs and laboratory data on admission were unremarkable. His vital signs stayed stable throughout his hospitalization. He was discharged in stable condition with instructions to follow-up with 180 as an outpatient for counseling services. This plan was established when he met with 180 during his hospitalization. Discharge diagnoses: Acute alcohol withdrawal Chronic alcohol abuse Tobacco abuse Physical Exam Const alert, oriented x3, no apparent distress, average body habitus, healthy appearing and well nourished Constitutional Narrative: Young white male sitting up in bed, watching television, appears comfortable nontoxic General Appearance: cooperative, comfortable, well kempt and well developed Orientation / Consciousness: awake Exam Limitations: no limitations HEENT normocephalic, head/scalp atraumatic and moist oral mucous membranes Resp normal respiratory effort, no retractions, no use of accessory muscles and clear to auscultation bilaterally Auscultation: Negative for crackles, rales, rhonchi or wheezes Cardio regular rate, regular rhythm, S1 normal heart sound, S2 normal heart sound, no murmurs, no rub, no gallops, no clicks and no JVD GI normal to inspection, nondistended, normoactive bowel sounds, soft to palpation, non-tender and non-distended Extremity no clubbing, cyanosis or edema Extremity Narrative: 2+ pedal pulses Neuro oriented x3, CN's II-XII intact bilaterally, moves all extremities and no focal motor deficits Sensorium / Orientation: awake and alert Speech: speech normal Weight / BMI Weight Weight: 76.9 kg Body Mass Index (BMI) 23.7 ABG / Lab / Microbiology Data Result Diagrams: 02/15/22 19:20 02/15/22 19:20 D/C Instructions Discharge Diet: No restrictions Discharge Activity: Return to Normal Activity Meaningful Use Info Meaningful Use Diagnoses (Choose all that apply): None applicable Discharge Plan Admission Admit Date/Time: 02/15/22 20:23 Primary Reason for Your Visit: EtOH Detox Attending Provider: Princess Reese Primary Care Provider: Care Physician,No Primary Consulting Providers: Brent Argueta Instructions Additional Instructions / Restrictions: Please follow-up at 180 for follow-up counseling service as discussed with addiction medicine Discharge Orders/Prescriptions Prescriptions: No Action NK RF: 0 Referrals / Follow Up: Care Physician,No Primary [Primary Care Provider] - Disposition Disposition (needs filled in before D/C Order can be placed): Home, Self Care Charges/Coding Visit Charges Inpatient E&M: 62961 Disch Hosp
== END 2022-02-18 10:10 | disposition home or self-care (01) | DRG 897 ==
LOC: ED 19:33 → MS3 20:56
PROVIDERS: Admitting Provider Hospitalist; Emergency Provider Student in an Organized Health Care Education/Training Program; Visit Provider Internal Medicine
DX: F10.239 Alcohol dependence with withdrawal, unspecified (principal); K70.9 Alcoholic liver disease, unspecified; F10.129 Alcohol abuse with intoxication, unspecified; I10 Essential (primary) hypertension; F17.210 Nicotine dependence, cigarettes, uncomplicated; F41.9 Anxiety disorder, unspecified; R79.89 Other specified abnormal findings of blood chemistry; Y90.8 Blood alcohol level of 240 mg/100 ml or more
CPT/HCPCS: 36415; 80053; 80076; 80307; 82077; 83690; 85025; 99283; 99406; J7030; A4216

== ENCOUNTER 2022-04-24 09:04 | Inpatient (IN) | payer OTHER, SELFPAY ==
[2022-04-24 09:08] VITALS: BP 149/98; PULSE 125; RESP 14; TEMP 36.9; O2SAT 99; BMI 24.4
--- NOTE | 2022-04-24 09:25 | EX.ED.SAOD ---
HPI History of Present Illness Chief Complaint: Substance Abuse Informant: patient Narrative Narrative: Patient is a 26-year-old male with history of tobacco and alcohol use presenting for alcohol detox. Patient was most recently an inpatient detox at our hospital the end of January of this year. He states that he did not drink for 2 to 3 weeks but then started drinking again. He is progressed to drinking beer and liquor daily. He has a hard time quantifying but states he is drinking at least a sixpack of Rios light a day, some twisted tea and is gone through 2x fifths of liquor in the past week and a half. States he does not feel good ever, cannot sleep and gets the shakes if he does not drink. He is requesting to be admitted for detox again. He states he is planning on taking everything much more seriously this time and following through with [facility]. Denies any drug use. No other complaints at this time. Last drink was just prior to arrival where he had a rum and coke. Last drink before that was around midnight. [facility] Medical History Alcohol abuse Anxiety Smoker Tobacco abuse Home Medications NK 02/15/22 [History Last Taken Unknown] Allergy/AdvReac Type Severity Reaction Status Date / Time No Known Allergies Allergy Verified 04/24/22 09:29 Family History Other Alcoholism Anxiety Arthritis Surgical History Hx of eye surgery Social History Smoking Status: Current every day smoker tobacco type: e-cigarettes ROS ROS ED Constitutional Constitutional ED: Denies chills or fever(s) Eyes Eyes: Denies change in vision ENT ENT ED: Denies rhinorrhea Cardiovascular Cardiovascular: Denies chest pain Respiratory/Chest Respiratory/Chest: Denies cough Gastrointestinal Gastrointestinal: Denies abdominal pain, nausea or vomiting Genitourinary Genitourinary ED: Denies dysuria Musculoskeletal Musculoskeletal: Denies arthralgias or myalgias Integumentary Denies rash Neurologic Neurologic: Reports other Details: tremor ; Denies headache(s) or paresthesias Psychiatric Psychiatric: Reports anxiety; Denies depression Hematologic/Lymphatic Hematologic/Lymphatic: Denies easy bleeding EXAM Physical Exam Const Vital Signs: 04/24/22 09:08 04/24/22 11:11 04/24/22 12:15 Temperature 98.4 F 98.4 F Temperature Source Temporal Oral Pulse Rate 125 H 105 H 105 H Respiratory Rate 14 16 18 Blood Pressure 149/98 H 138/98 H 138/98 H Blood Pressure Mean 115 111 111 Blood Pressure Source Blood Pressure Position Blood Pressure Location Pulse Ox 99 99 99 Oxygen Delivery Method Room Air Room Air Room Air 04/24/22 12:16 Temperature 98.1 F Temperature Source Oral Pulse Rate 98 Respiratory Rate 18 Blood Pressure 156/112 H Blood Pressure Mean 126 Blood Pressure Source Monitor Blood Pressure Position Sitting Blood Pressure Location Right Arm Pulse Ox 100 Oxygen Delivery Method Room Air Positive well nourished and well developed General Appearance ED: well developed HEENT Reports moist mucous membranes atraumatic Eyes PERRL and EOMs intact bilaterally Neck supple and no JVD Chest Wall inspection of chest normal Resp normal respiratory effort and clear to auscultation bilaterally Cardio regular rate, regular rhythm and no murmurs GI soft to palpation, non-tender and non-distended Extremity General Extremety ED: Negative for edema or tenderness General Extremity: Negative for edema Neuro oriented x3 Neuro Narrative: no focal deficits appreciated, normal speech Motor Exam: Negative for general weakness Psych mental status grossly normal and thought process normal Skin Lesions: no lesions Rashes: no rashes MDM MDM MDM Narrative Medical decision making narrative: Patient presents requesting alcohol detox. Will obtain screening labs and contact hospitalist for admission. Lab Data Attestation: I reviewed the patient's lab results. Labs: Laboratory Results - last 24 hr 04/24/22 04/24/22 04/24/22 09:36 10:40 10:40 WBC 6.1 RBC 5.03 Hgb 16.8 H Hct 46.5 MCV 92.4 MCH 33.4 H MCHC 36.1 H RDW Std Deviation 41.6 RDW Coeff of Lance 12.2 Plt Count 303 MPV 9.0 Immature Gran % (Auto) 0.300 Neut % (Auto) 63.6 Lymph % (Auto) 23.6 [place] % (Auto) 11.6 H Eos % (Auto) 0.2 Baso % (Auto) 0.7 Absolute Neuts (auto) 3.9 Absolute Lymphs (auto) 1.43 Nucleated RBC % 0 Sodium 138 Potassium 3.8 Chloride 102 Carbon Dioxide 29.0 Anion Gap 7 BUN 10 Creatinine 1.01 Estim Creat Clear Calc 115.97 Est GFR (MDRD) Af Amer 113 Est GFR (MDRD) Non-Af 93 BUN/Creatinine Ratio 9.9 L Glucose 100 Calcium 9.0 Total Bilirubin 1.00 AST 120 H ALT 100 H Alkaline Phosphatase 83 Total Protein 8.3 H Albumin 4.2 Globulin 4.1 Albumin/Globulin Ratio 1.0 Urine Opiates Screen NEGATIVE Urine Methadone Screen NEGATIVE Ur Barbiturates Screen NEGATIVE Ur Phencyclidine Scrn NEGATIVE Ur Amphetamines Screen NEGATIVE MDMA (Ecstasy) Screen NEGATIVE U Benzodiazepines Scrn NEGATIVE Urine Cocaine Screen NEGATIVE U Cannabinoids Screen NEGATIVE Ur Drug Screen Comment Ethyl Alcohol 04/24/22 10:40 WBC RBC Hgb Hct MCV MCH MCHC RDW Std Deviation RDW Coeff of Lance Plt Count MPV Immature Gran % (Auto) Neut % (Auto) Lymph % (Auto) [place] % (Auto) Eos % (Auto) Baso % (Auto) Absolute Neuts (auto) Absolute Lymphs (auto) Nucleated RBC % Sodium Potassium Chloride Carbon Dioxide Anion Gap BUN Creatinine Estim Creat Clear Calc Est GFR (MDRD) Af Amer Est GFR (MDRD) Non-Af BUN/Creatinine Ratio Glucose Calcium Total Bilirubin AST ALT Alkaline Phosphatase Total Protein Albumin Globulin Albumin/Globulin Ratio Urine Opiates Screen Urine Methadone Screen Ur Barbiturates Screen Ur Phencyclidine Scrn Ur Amphetamines Screen MDMA (Ecstasy) Screen U Benzodiazepines Scrn Urine Cocaine Screen U Cannabinoids Screen Ur Drug Screen Comment Ethyl Alcohol 238.0 Discharge Plan Dx/Rx/DC Orders Clinical Impression: Alcohol withdrawal, Alcohol intoxication Disposition Disposition: Acute Care Hospital [facility]
--- NOTE | 2022-04-24 10:13 | CM.ED ---
MC Note Referral Source: Case Find Referral Reason: JUSTEN BENTLEY met with patient. Patient confirmed he is at the ED for detox from alcohol. Last drink was rum and coke at 8:30 am this morning. Sw asked patient how much he is drinking and patient said alot more than that.. beer and whiskey. Patient was unable to quantify how much he is drinking. SW asked patient if he is linked with [employer] and patient he is NOT linked with [employer] as I felt good and felt like I didn't need it.. I didn't drink for a couple of weeks. Patient said that he now realizes he needs help with his alcohol use. 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 SW however did state that patient has access to alcohol at his work and patient confirmed he does have unlimited access. SW reviewed the rules of the program which include no visitors, no outside food, no phones and personal belongings are locked and patient verbalized understanding. SW noted that patient has no insurance. Patient said that he attempted to obtain insurance last year but was denied. Patient was encouraged to complete the application for medicaid again and patient voiced he would complete the application. Medicaid application provided to patient. Emotional support provided. MC called Buck, Addiction Therapist and updated her regarding patient and his desire for detox. Plan: JUSTEN MOREJON
[2022-04-24 10:16] LABS: Amphetamine Urine VISTA NEGATIVE (<1000 ng/mL); Barbiturate Urine VISTA NEGATIVE (< 200 ng/mL); Benzodiazepine Urine VISTA NEGATIVE (< 200 ng/mL); Cocaine Urine VISTA NEGATIVE (< 300 ng/mL); Ecstacy Urine VISTA NEGATIVE (< 500 ng/mL); Methadone Urine VISTA NEGATIVE (< 300 ng/mL); PCP Urine VISTA NEGATIVE (< 25 ng/mL); THC Urine VISTA NEGATIVE (< 50 ng/mL); Vista UDS pH Range 7
[2022-04-24 10:46] LABS: Absolute Lymphocyte Count 1.43 X10^3/uL (0.83-4.51); Absolute Neutrophil Count 3.9 X10^3/uL (2.0-7.7); Basophil# 0.04 X10^3/uL; Basophil% 0.7 % (0-1); Eosinophil# 0.01 X10^3/uL; Eosinophils% 0.2 % (0-5); Hematocrit 46.5 % (40-54); Hemoglobin 16.8 g/dL (13.0-16.5); Lymphocyte # 1.43 X10^3/ul (0.83-4.51); Lymphocyte % 23.6 % (19-41); Mean Corp Hgb Conc 36.1 g/dL (32-36); Mean Corpuscular Hgb 33.4 pg (27.0-32.0); Mean Corpuscular Volume 92.4 fL (80-94); Monocyte% 11.6 % (0-10); NRBC Flagged by Analyzer 0 % (0-5); Neutrophil # 3.86 X10^3/uL (2.7-7.7); Neutrophil % 63.6 % (47-70); Platelet Count 303 K/mm3 (150-450); RBC Distribution Width CV 12.2 % (11.6-14.6); RBC Distribution Width SD 41.6 fl (35.1-43.9); Red Blood Count 5.03 M/mm3 (4.6-6.2); White Blood Count 6.1 K/mm3 (4.4-11.0)
[2022-04-24 11:02] LABS: AST(SGOT) 120 U/L (15-37); Alanine Aminotransfer ALT/SGPT 100 U/L (16-61); Albumin, Serum 4.2 g/dL (3.2-5.0); Alkaline Phosphatase 83 U/L (45-117); Anion Gap 7 (5-15); BUN 10 mg/dL (7-18); BUN/Creat Ratio 9.9 RATIO (10-20); Chloride 102 mmol/L (98-107); Creatinine, Serum 1.01 mg/dL (0.70-1.30); EST Glomerular Filtration Rate 93 mL/min (>60); Est Glom Filt Rate - Afr Amer 113 mL/min (>60); Estimated Creatinine Clearance 115.97 ml/min; Globulin 4.1 g/dL (2.2-4.2); Glucose 100 mg/dL (74-106); Potassium 3.8 mmol/L (3.5-5.1); Protein, Total 8.3 g/dL (6.4-8.2); Sodium Level 138 mmol/L (136-145)
[2022-04-24 11:11] VITALS: BP 138/98; PULSE 105; RESP 16; O2SAT 99
[2022-04-24 12:15] VITALS: BP 138/98; PULSE 105; RESP 18; TEMP 36.9; O2SAT 99
[2022-04-24 12:16] VITALS: BP 156/112; PULSE 98; RESP 18; TEMP 36.7; O2SAT 100
[2022-04-24 12:26] VITALS: BMI 24.4
--- NOTE | 2022-04-24 13:08 | PCM.HP.STD ---
HPI - General General Date of Admission: 04/24/22 Date of Service: 04/24/22 Chief Complaint: Requesting treatment for alcohol withdrawal HPI Narrative TERESA LARIOS, is a 26 M who presents seeking treatment for alcohol withdrawal. Patient was discharged over the same and patient did not seek any treatment at that time. Stated that he was fine for about 2 weeks and then went to an event and then started resume drinking again. He is drinking several shots per day as well as beer and other drinks. His last drink was this morning. Since then he has been feeling anxious and slightly tremulous. [facility] Medical History Alcohol abuse Anxiety Smoker Tobacco abuse Home Medications NK 02/15/22 [History Last Taken Unknown] Allergy/AdvReac Type Severity Reaction Status Date / Time No Known Allergies Allergy Verified 04/24/22 09:29 Family History Other Alcoholism Anxiety Arthritis Surgical History Hx of eye surgery Social History Smoking Status: Current every day smoker tobacco type: e-cigarettes ROS ROS Narrative All review of systems were negative except as mentioned above in the history of present illness and the other review of systems. Vital Signs Vital Signs Vital Signs: 04/24/22 09:08 04/24/22 11:11 04/24/22 12:15 Temperature 36.9 C 36.9 C Temperature Source Temporal Oral Pulse Rate 125 H 105 H 105 H Respiratory Rate 14 16 18 Blood Pressure 149/98 H 138/98 H 138/98 H Blood Pressure Mean 115 111 111 Blood Pressure Source Blood Pressure Position Blood Pressure Location Pulse Ox 99 99 99 Oxygen Delivery Method Room Air Room Air Room Air 04/24/22 12:16 Temperature 36.7 C Temperature Source Oral Pulse Rate 98 Respiratory Rate 18 Blood Pressure 156/112 H Blood Pressure Mean 126 Blood Pressure Source Monitor Blood Pressure Position Sitting Blood Pressure Location Right Arm Pulse Ox 100 Oxygen Delivery Method Room Air Weight Weight: 79.379 kg Body Mass Index (BMI) 24.4 Physical Exam Const alert and no apparent distress Resp normal respiratory effort, no retractions, no use of accessory muscles and clear to auscultation bilaterally Cardio regular rate, regular rhythm, S1 normal heart sound and S2 normal heart sound GI normal to inspection, nondistended, normoactive bowel sounds, soft to palpation, non-tender and non-distended Extremity normal to inspection Skin Skin Narrative: Numerous tattoos Neuro oriented x3 and CN's II-XII intact bilaterally Results Lab / Micro Data Result Diagrams: 04/24/22 10:40 04/24/22 10:40 Labs: Laboratory Results - last 24 hr 04/24/22 09:36: Urine Opiates Screen NEGATIVE, Urine Methadone Screen NEGATIVE, Ur Barbiturates Screen NEGATIVE, Ur Phencyclidine Scrn NEGATIVE, Ur Amphetamines Screen NEGATIVE, MDMA (Ecstasy) Screen NEGATIVE, U Benzodiazepines Scrn NEGATIVE, Urine Cocaine Screen NEGATIVE, U Cannabinoids Screen NEGATIVE, Ur Drug Screen Comment 04/24/22 10:40: WBC 6.1, RBC 5.03, Hgb 16.8 H, Hct 46.5, MCV 92.4, MCH 33.4 H, MCHC 36.1 H, RDW Std Deviation 41.6, RDW Coeff of Lance 12.2, Plt Count 303, MPV 9.0, Immature Gran % (Auto) 0.300, Neut % (Auto) 63.6, Lymph % (Auto) 23.6, [place] % (Auto) 11.6 H, Eos % (Auto) 0.2, Baso % (Auto) 0.7, Absolute Neuts (auto) 3.9, Absolute Lymphs (auto) 1.43, Nucleated RBC % 0 04/24/22 10:40: Sodium 138, Potassium 3.8, Chloride 102, Carbon Dioxide 29.0, Anion Gap 7, BUN 10, Creatinine 1.01, Estim Creat Clear Calc 115.97, Est GFR (MDRD) Af Amer 113, Est GFR (MDRD) Non-Af 93, BUN/Creatinine Ratio 9.9 L, Glucose 100, Calcium 9.0, Total Bilirubin 1.00, AST 120 H, ALT 100 H, Alkaline Phosphatase 83, Total Protein 8.3 H, Albumin 4.2, Globulin 4.1, Albumin/Globulin Ratio 1.0 04/24/22 10:40: Ethyl Alcohol 238.0 Assessment & Plan Assessment/Plan (1) Alcohol withdrawal: PLAN: Last drink was this morning Plan is for phenobarbital taper, thiamine and folate. Patient is now open to following up program upon discharge. Addiction medicine to facilitate. PLAN: Plan VTE prophylaxis: Not indicated since patient's low risk. Charges/Coding Visit Charges Inpatient E&M: 15184 Init Hosp L2
[2022-04-24] MEDS: Phenobarbital 32.4 MG Tablet 64.8 MG PO ×3 (13:37→21:07)
[2022-04-24] MEDS: Dicyclomine 10 MG Capsule 20 MG PO (13:38)
[2022-04-24] MEDS: Ondansetron 8 MG Tablet PO ×2 (13:38→22:27)
[2022-04-24] MEDS: Loperamide 2 MG Capsule PO (13:38)
[2022-04-24] MEDS: Gabapentin 300 MG Capsule PO ×2 (13:38→22:27)
[2022-04-24] MEDS: hydrOXYzine PAM 25 MG Capsule 50 MG PO ×2 (16:16→20:28)
[2022-04-24 17:09] VITALS: BP 151/108; PULSE 80; RESP 20; TEMP 36.8; O2SAT 98
[2022-04-24] MEDS: Ibuprofen 600 MG Tablet PO (20:28)
[2022-04-24 20:59] VITALS: BP 153/106; PULSE 86; RESP 18; TEMP 36.6; O2SAT 100
[2022-04-24] MEDS: traZODone 100 MG Tablet PO (21:07)
[2022-04-25 01:29] VITALS: BP 144/95; PULSE 77; RESP 16; TEMP 36.6; O2SAT 99
[2022-04-25] MEDS: Phenobarbital 32.4 MG Tablet 64.8 MG PO ×6 (01:33→21:35)
[2022-04-25] MEDS: hydrOXYzine PAM 25 MG Capsule 50 MG PO (01:35)
[2022-04-25 05:46] VITALS: BP 123/84; PULSE 66; RESP 16; TEMP 36.5; O2SAT 96
--- NOTE | 2022-04-25 07:52 | PN.HOSP_ITS ---
Subjective Subjective Feeling anxious. No new events. Objective Data Objective Data Vital Signs: Vital Signs Temp Pulse Resp BP Pulse Ox O2 Del Method 36.5 C L 66 16 123/84 H 96 Room Air 04/25/22 05:46 04/25/22 05:46 04/25/22 05:46 04/25/22 05:46 04/25/22 05:46 04/25/22 05:46 Oxygen Delivery Method Room Air Weight: 79.379 kg Body Mass Index (BMI) 24.4 Intake & Output: Intake and Output for Last 24 Hours 04/23/22 04/24/22 04/25/22 23:59 23:59 23:59 Intake Total 600 / 600 Balance 600 / 600 Lab / Micro Data Result Diagrams: 04/24/22 10:40 04/24/22 10:40 Labs: Laboratory Results - last 24 hr 04/24/22 09:36: Urine Opiates Screen NEGATIVE, Urine Methadone Screen NEGATIVE, Ur Barbiturates Screen NEGATIVE, Ur Phencyclidine Scrn NEGATIVE, Ur Amphetamines Screen NEGATIVE, MDMA (Ecstasy) Screen NEGATIVE, U Benzodiazepines Scrn NEGAT [place], Urine Cocaine Screen NEGATIVE, U Cannabinoids Screen NEGATIVE, Ur Drug Screen Comment 04/24/22 10:40: WBC 6.1, RBC 5.03, Hgb 16.8 H, Hct 46.5, MCV 92.4, MCH 33.4 H, MCHC 36.1 H, RDW Std Deviation 41.6, RDW Coeff of Lance 12.2, Plt Count 303, MPV 9.0, Immature Gran % (Auto) 0.300, Neut % (Auto) 63.6, Lymph % (Auto) 23.6, [place] % (Auto) 11.6 H, Eos % (Auto) 0.2, Baso % (Auto) 0.7, Absolute Neuts (auto) 3.9, Absolute Lymphs (auto) 1.43, Nucleated RBC % 0 04/24/22 10:40: Sodium 138, Potassium 3.8, Chloride 102, Carbon Dioxide 29.0, Anion Gap 7, BUN 10, Creatinine 1.01, Estim Creat Clear Calc 115.97, Est GFR (MDRD) Af Amer 113, Est GFR (MDRD) Non-Af 93, BUN/Creatinine Ratio 9.9 L, Glucose 100, Calcium 9.0, Total Bilirubin 1.00, AST 120 H, ALT 100 H, Alkaline Phosphatase 83, Total Protein 8.3 H, Albumin 4.2, Globulin 4.1, Albumin/Globulin Ratio 1.0 04/24/22 10:40: Ethyl Alcohol 238.0 Physical Exam Const alert and no apparent distress Resp normal respiratory effort Cardio regular rate, regular rhythm, S1 normal heart sound and S2 normal heart sound GI normal to inspection, nondistended, normoactive bowel sounds, soft to palpation, non-tender and non-distended Extremity normal to inspection Assessment & Plan Assessment/Plan (1) Alcohol withdrawal: PLAN: Last drink was this morning Plan is for phenobarbital taper, thiamine and folate. Patient is now open to following up program upon discharge. Addiction medicine to facilitate. PLAN: Plan VTE prophylaxis: Not indicated since patient's low risk. Charges/Coding Visit Charges Inpatient E&M: 44971 Subs Hosp L2
[2022-04-25 09:15] VITALS: BP 145/87; PULSE 92; RESP 16; TEMP 36.8; O2SAT 97
[2022-04-25] MEDS: Folic Acid 1 MG Tablet PO (09:18)
[2022-04-25] MEDS: Thiamine Hydrochloride 100 MG Tablet PO (09:18)
--- NOTE | 2022-04-25 11:16 | ADDICTION ---
This telegraphic typewriter mechanic met with PT to conduct ASAM, MSE, AUDIT assessments and to plan for d/c. PT A+Ox4 and participated actively. All assessments completed, faxed to [facility] and placed in PT's chart. PT plans to f/u with individual counselor at [facility] for outpatient counseling services. PT did not indicate a need for transportation post d/c from [facility].
[2022-04-25 14:55] VITALS: BP 154/93; PULSE 89; RESP 16; TEMP 37; O2SAT 96
[2022-04-25] MEDS: Nicotine Polacrilex 2 MG GUM PO ×2 (14:56→20:18)
[2022-04-25 20:10] VITALS: BP 132/81; PULSE 81; RESP 18; TEMP 36.9; O2SAT 98
[2022-04-25] MEDS: traZODone 100 MG Tablet PO (21:35)
[2022-04-26 02:36] VITALS: BP 127/82; PULSE 71; RESP 18; TEMP 36.6; O2SAT 99
[2022-04-26] MEDS: Phenobarbital 32.4 MG Tablet 64.8 MG PO ×3 (02:40→09:10)
[2022-04-26] MEDS: Folic Acid 1 MG Tablet PO (09:10)
[2022-04-26] MEDS: Thiamine Hydrochloride 100 MG Tablet PO (09:10)
--- NOTE | 2022-04-26 11:31 | DCINST_ITS ---
Discharge Instructions Diet Discharge Diet: No restrictions Follow Up Care Please Follow Up With: Jeannie Test Results: Test results from this visit will be discussed in further detail at your follow- up appointment, if applicable. Discharge Plan Admission Admit Date/Time: 04/24/22 13:05 Primary Reason for Your Visit: alcohol withdrawal Attending Provider: Lazaro Umanzor Primary Care Provider: Yariel Physician,Kaia Primary Discharge Orders/Prescriptions Prescriptions: New multivitamin Tablet 1 tab PO DAILY Qty: 30 0RF Referrals / Follow Up: Care Physician,No Primary [Primary Care Provider] - Disposition Disposition (needs filled in before D/C Order can be placed): Home, Self Care
--- NOTE | 2022-04-26 11:32 | PCM.DC.SUM ---
Providers Date of Admission: 04/24/22 Primary Care Physician: Kaia Primary Care Phys Reason For Visit: ALCOHOL DEPENDENCY Diagnosis Discharge Diagnosis (1) Alcohol withdrawal: Status: Acute Code(s): F10.939 - Alcohol use, unspecified with withdrawal, unspecified Plan: Last drink was morning of admission Patient overall doing better and will be discharged today. Patient plans to follow-up with [facility] for outpatient counseling. Plan VTE prophylaxis: Not indicated since patient's low risk. Medications at Discharge Home Medications multivitamin 1 tab PO DAILY #30 tabs 04/26/22 Hospital Course Operations None Procedures None Summary of Care Provided Minutes Spent on Discharge: 20 Physical Exam Const alert and no apparent distress Constitutional Narrative: Up ambulating through the hallways without difficulty. Psych affect normal Weight / BMI Weight Weight: 79.379 kg Body Mass Index (BMI) 24.4 ABG / Lab / Microbiology Data Result Diagrams: 04/24/22 10:40 04/24/22 10:40 D/C Instructions Discharge Diet: No restrictions Please Follow Up With: Jeannie Meaningful Use Info Meaningful Use Diagnoses (Choose all that apply): None applicable Discharge Plan Admission Admit Date/Time: 04/24/22 13:05 Primary Reason for Your Visit: alcohol withdrawal Attending Provider: Lazaro Umanzor Primary Care Provider: Care Physician,Kaia Primary Discharge Orders/Prescriptions Prescriptions: New multivitamin Tablet 1 tab PO DAILY Qty: 30 0RF Referrals / Follow Up: Care Physician,No Primary [Primary Care Provider] - Disposition Disposition (needs filled in before D/C Order can be placed): Home, Self Care Charges/Coding Visit Charges Inpatient E&M: 25811 Disch Hosp
== END 2022-04-26 11:53 | disposition home or self-care (01) | DRG 897 ==
LOC: ED 10:28 → MS3 12:05
PROVIDERS: Emergency Provider Emergency Medicine
DX: F10.239 Alcohol dependence with withdrawal, unspecified (principal); F17.210 Nicotine dependence, cigarettes, uncomplicated; Y90.7 Blood alcohol level of 200-239 mg/100 ml
CPT/HCPCS: 80053; 80307; 82077; 85025; 99284; 99406; A4216

== ENCOUNTER 2024-01-02 13:00 | Inpatient (IN) | payer SELFPAY ==
[2024-01-02] VITALS (9 sets, daily range): BP systolic 135–158; BP diastolic 95–110; PULSE 101–122; RESP 14–20; TEMP 36.4–37.1; O2SAT 10–98; BMI 21.9
--- NOTE | 2024-01-02 13:30 | EKG12_ITS ---
Test Reason : CP Blood Pressure : / mmHG Vent. Rate : 097 BPM Atrial Rate : 097 BPM P-R Int : 140 ms QRS Dur : 090 ms QT Int : 398 ms P-R-T Axes : 072 024 046 degrees QTc Int : 505 ms Normal sinus rhythm Prolonged QT Abnormal ECG Confirmed by Chapo Jauregui ([id number]), social media editor SAVANAH MEZA ([id number]) on 01/03/2024 11:01:08 AM Referred By: GERONIMO Confirmed By:Chapo Jauregui
--- NOTE | 2024-01-02 13:32 | EDS_ITS ---
HPI History of Present Illness Chief Complaint: Numb/Ting Informant: patient and EMS Narrative Narrative: Patient presents with several complaints. He has not admitted alcoholic he is been drinking whiskey heavily every day for months, his last drink was early th is morning, he presents at 1330, and states he is starting to feel like he is in withdrawal. He has been having chest tightness this morning, he feels like it is kindhearted take a deep breath but he denies any corona dyspnea or coughing or fevers. He states for the past several weeks he has been having progressively worsening numbness and weakness in his legs. He states the numbness feels like it goes up to his waist. He also for the last several days has been having swelling in his abdomen. He states he is considering detox, he went through its months or a year ago, he was alcoholic prior to that, he fell off the wagon and started drinking again. He states he is not sure if he wants it right now or not. He states he occasionally has vomiting, he last vomited last night, typically when he drinks too much. Patient states that his numbness and weakness sometimes is to the point where he cannot stand or walk. He denies any recent diarrheal illness or travel out of the area. [facility] Medical History Alcohol abuse Anxiety Smoker Tobacco abuse Home Medications NK 01/02/24 [History Last Taken Unknown] Allergy/AdvReac Type Severity Reaction Status Date / Time No Known Allergies Allergy Verified 01/02/24 13:06 Family History Other Alcoholism Anxiety Arthritis Surgical History Hx of eye surgery Social History Smoking Status: Former smoker ROS ROS ED Constitutional Constitutional ED: Denies chills or fever(s) Eyes Eyes: Denies change in vision or diplopia ENT ENT ED: Denies rhinorrhea or sore throat Cardiovascular Cardiovascular: Reports chest pain; Denies orthopnea or palpitations Respiratory/Chest Respiratory/Chest: Denies cough, dyspnea, dyspnea on exertion or orthopnea Gastrointestinal Gastrointestinal: Reports as per HPI, bloating, nausea and vomiting; Denies abdominal pain, diarrhea, hematemesis, hematochezia or melena Genitourinary Genitourinary ED: Denies dysuria or hematuria Musculoskeletal Musculoskeletal: Denies back pain or neck pain Integumentary Denies abscess or rash Neurologic Neurologic: Reports paresthesias and weakness; Denies headache(s) Psychiatric Psychiatric: Reports anxiety; Denies suicidal thoughts EXAM Physical Exam Const Vital Signs: 01/02/24 13:06 01/02/24 13:12 01/02/24 14:01 Temperature 98.7 F Temperature Source Temporal Pulse Rate 117 H 114 H Respiratory Rate 20 H 18 Respiratory Effort Normal Non-Labored Blood Pressure 158/110 H 150/95 H Blood Pressure Mean 126 113 Pulse Ox 10 98 Oxygen Delivery Method Room Air Room Air 01/02/24 15:00 01/02/24 13:30 01/02/24 16:00 Temperature Temperature Source Pulse Rate 120 H 112 H Respiratory Rate 18 20 H Respiratory Effort Blood Pressure 153/110 H 152/103 H Blood Pressure Mean 124 119 Pulse Ox 98 95 Oxygen Delivery Method Room Air Room Air Room Air Positive well nourished and well developed Constitutional Narrative: Tremulous. Oriented in no distress General Appearance ED: well developed and NAD HEENT Reports moist mucous membranes normocephalic and atraumatic Eyes PERRL and EOMs intact bilaterally Neck full ROM and supple Chest Wall inspection of chest normal and palpation of chest normal Resp normal respiratory effort and clear to auscultation bilaterally Cardio regular rate, regular rhythm and no murmurs Rate: other Other Details: mild tachycardia GI non-tender and non-distended GI Narrative: Normal inspection no [place] sign or Blanc Castanon Auscultation: normoactive bowel sounds Palpation: soft Back/Spine no CVA tenderness General Back: other FROM Extremity normal to inspection General Extremety ED: Negative for edema, pulses abnormal or tenderness General Extremity: Negative for edema or pulses abnormal Neuro oriented x3 and CN's II-XII intact bilaterally Neuro Narrative: To sharp presentation to skin, he has decreased sensation to sharp input throughout the plantar aspect of the foot and all of the toes bilaterally symmetrically, but in the dorsal mid/proximal foot, he has good sensation as what he does all the way up the legs and into the lower abdominal wall. Patient is diffusely hyporeflexic, there is no response to Babinski testing bilaterally, there is no clonus. Hyperreflexia is symmetric in the arms and the legs. There is no asterixis on his hands. Sensorium / Orientation: awake and alert Motor Exam: strength 5/5 throughout Psych mental status grossly normal Skin no rashes or lesions noted and no wounds MDM MDM MDM Narrative Medical decision making narrative: Patient does not have a high sensory level. If anywhere, it is in the feet and is decreased sensation is symmetric bilaterally. Furthermore his hyporeflexia is diffuse upper and lower extremities, and less likely therefore to be Guillain-Sanchez? syndrome. In addition he has scoliosis. For these reasons I do not think it is worth trying to do a lumbar puncture at this time. Furthermore, and working the patient up with labs, he has hypokalemia which can cause some of the weakness that he is experiencing. Therefore while waiting for other test to come back he was given oral and IV potassium replacement. He felt better and was able to stand and walk without difficulty. We discussed his liver enzymes that are likely elevated due to alcohol abuse. I discussed detox with him. He considered it and I went back into the room about 3 times asking him for decision and he decided against inpatient detox right now. He states he is not ready. He is interested in curbing his alcohol use, and states that he will continue to consider detox and return here if indeed he is ready which I encouraged him to do. In addition I encouraged him to curb his use, and to follow-up at [facility] as they also have resources and counseling that they could offer him for his addiction issues. He is amenable to this. Lab Data Attestation: I reviewed the patient's lab results. Labs: Laboratory Results - last 24 hr 01/02/24 01/02/24 13:36 14:38 WBC 7.7 RBC 4.00 L Hgb 13.9 Hct 39.3 L MCV 98.3 H MCH 34.8 H MCHC 35.4 RDW Std Deviation 48.6 H RDW Coeff of Lance 13.5 Plt Count 210 MPV 9.2 Immature Gran % (Auto) 0.300 Neut % (Auto) 82.9 H Lymph % (Auto) 6.7 L [place] % (Auto) 9.6 Eos % (Auto) 0.0 Baso % (Auto) 0.5 Absolute Neuts (auto) 6.4 Absolute Lymphs (auto) 0.52 L Nucleated RBC % 0 Sodium 134 L Potassium 3.0 L Chloride 96 L Carbon Dioxide 27.0 Anion Gap 11 BUN 5 L Creatinine 0.64 L Estim Creat Clear Calc 170.20 Est GFR (MDRD) Af Amer 188 Est GFR (MDRD) Non-Af 155 BUN/Creatinine Ratio 7.8 L Glucose 113 H Calcium 8.7 Total Bilirubin 1.90 H Direct Bilirubin 1.06 H AST 495 H ALT 188 H Alkaline Phosphatase 221 H Troponin I High Sens 7 Total Protein 7.6 Albumin 3.7 Globulin 3.9 Urine Opiates Screen NEGATIVE Urine Methadone Screen NEGATIVE Ur Barbiturates Screen NEGATIVE Ur Phencyclidine Scrn NEGATIVE Ur Amphetamines Screen NEGATIVE MDMA (Ecstasy) Screen NEGATIVE U Benzodiazepines Scrn NEGATIVE Urine Cocaine Screen NEGATIVE U Cannabinoids Screen NEGATIVE Ur Drug Screen Comment Ethyl Alcohol 103.0 Radiography Diagnostic Testing: Clinical Impression(s) from Imaging Studies Chest X-Ray 01/02/24 13:45 IMPRESSION: The lungs are clear. Dextroscoliosis of the thoracic spine. Electronically Signed: Adam Roman MD at 14:03 EDT , Rhythm Strip Rhythm Strip: Sinus Rhythm Rate: 95 Ectopy: None EKG Initial EKG: Attestation: I personally reviewed and interpreted this EKG as follows: Interpretation: Sinus Rhythm and No Acute Injury Pattern Discharge Plan Triage Chief Complaint: Numb/Ting Other Complaint: ETOH Intox ED Provider: Chalino Hairston Dx/Rx/DC Orders Clinical Impression: Hypokalemia due to excessive gastrointestinal loss of potassium, Alcohol withdrawal, Acute alcoholic hepatitis Instructions: Alcohol Withdrawal: What to Expect, Hypokalemia Dc Prescriptions: No Action NK Primary Care Provider: Care Physician,No Primary Referrals: [facility] [Non-Staff] - As soon as possible Disposition Disposition: Home, Self Care
--- NOTE | 2024-01-02 13:45 | RAD_ITS ---
STUDY: X-RAY CHEST REASON FOR EXAM: Male, 28 years old. Chest pain TECHNIQUE: Single AP portable view of the chest. COMPARISON: Comparison is made with prior study July 03, 2021. FINDINGS: EKG electrodes are seen. The lungs are clear and expanded. There is no demonstrated pleural abnormality. Normal size heart. Normal mediastinum and maye. Normal visualized pulmonary arteries. Normal visualized aortic arch and descending thoracic aorta. There is a dextroscoliosis of the thoracic spine. Normal visualized ribs, clavicles, and shoulders. There is no demonstrated abnormality of the visualized soft tissue structures of the upper abdomen. RAD/Chest 1 View (Portable) IMPRESSION: The lungs are clear. Dextroscoliosis of the thoracic spine. Electronically Signed: Adam Roman MD at 14:03 EDT ,
[2024-01-02 13:48] LABS: Absolute Lymphocyte Count 0.52 X10^3/uL (0.83-4.51); Absolute Neutrophil Count 6.4 X10^3/uL (2.0-7.7); Basophil# 0.04 X10^3/uL; Basophil% 0.5 % (0-1); Hematocrit 39.3 % (40-54); Hemoglobin 13.9 g/dL (13.0-16.5); Lymphocyte # 0.52 X10^3/ul (0.83-4.51); Lymphocyte % 6.7 % (19-41); Mean Corp Hgb Conc 35.4 g/dL (32-36); Mean Corpuscular Hgb 34.8 pg (27.0-32.0); Mean Corpuscular Volume 98.3 fL (80-94); Mean Platelet Vol. 9.2 fl (6.2-12.0); Monocyte# 0.74 X10^3/uL; Monocyte% 9.6 % (0-10); NRBC Flagged by Analyzer 0 % (0-5); Neutrophil # 6.41 X10^3/uL (2.7-7.7); Neutrophil % 82.9 % (47-70); POSITIVE DIFFERENTIAL YES; Platelet Count 210 K/mm3 (150-450); RBC Distribution Width CV 13.5 % (11.6-14.6); RBC Distribution Width SD 48.6 fl (35.1-43.9); White Blood Count 7.7 K/mm3 (4.4-11.0)
[2024-01-02 14:06] LABS: AST(SGOT) 495 U/L (15-37); Alanine Aminotransfer ALT/SGPT 188 U/L (16-61); Albumin, Serum 3.7 g/dL (3.2-5.0); Alkaline Phosphatase 221 U/L (45-117); Anion Gap 11 (5-15); BUN 5 mg/dL (7-18); BUN/Creat Ratio 7.8 RATIO (10-20); Bilirubin, Direct 1.06 mg/dL (0.00-0.30); Calcium,Total 8.7 mg/dL (8.5-10.1); Chloride 96 mmol/L (98-107); Creatinine, Serum 0.64 mg/dL (0.70-1.30); EST Glomerular Filtration Rate 155 mL/min (>60); Est Glom Filt Rate - Afr Amer 188 mL/min (>60); Globulin 3.9 g/dL (2.2-4.2); Glucose 113 mg/dL (74-106); Protein, Total 7.6 g/dL (6.4-8.2); Sodium Level 134 mmol/L (136-145); Troponin-I HS (w/2H Reflex) 7 pg/mL (3.0-78.0)
[2024-01-02] MEDS: Potassium Chloride Oral Tablet 20 MEQ 40 MEQ PO (14:35)
[2024-01-02] MEDS: Ondansetron 4 MG/2 ML Vial IV (14:35)
[2024-01-02] MEDS: Potassium Chloride 10mEq/100mL 10 MEQ/100 ML IV.SOLN. 100 MEQ IV BOLUS (14:35)
[2024-01-02] MEDS: LORazepam 2 MG/ML Syringe 1 MG IV (15:16)
[2024-01-02 15:37] LABS: Amphetamine Urine VISTA NEGATIVE (<1000 ng/mL); Barbiturate Urine VISTA NEGATIVE (< 200 ng/mL); Benzodiazepine Urine VISTA NEGATIVE (< 200 ng/mL); Cocaine Urine VISTA NEGATIVE (< 300 ng/mL); Ecstacy Urine VISTA NEGATIVE (< 500 ng/mL); Methadone Urine VISTA NEGATIVE (< 300 ng/mL); PCP Urine VISTA NEGATIVE (< 25 ng/mL); THC Urine VISTA NEGATIVE (< 50 ng/mL); Vista UDS pH Range 6
[2024-01-02 15:42] LABS: Reflex Troponin-HS? (from REC) Y
[2024-01-02 16:26] LABS: Troponin-I HS 8 pg/mL (3.0-78.0)
[2024-01-02 16:34] LABS: International Normalized Ratio 1.1; Prothrombin Time (Protime)PT. 13.7 SECONDS (11.7-14.9)
--- NOTE | 2024-01-02 17:53 | PCM.HP.STD ---
HPI - General General Date of Admission: 01/02/24 HPI Narrative TERESA LARIOS, is a 28 M who presents to the hospital for detox. He was recently in detox in 2021 and has since relapsed. He drinks about a bottle of whiskey per day. His last drink was this morning around 8 AM and since that time he has been feeling anxious and restless blood alcohol level is 103. He does have some elevated LFTs consistent with his alcohol use and is fairly close to his previous levels back in 2021. He also states that he has some numbness and tingling in his lower extremities that used to be intermittent but now appear to be more consistent. [facility] Medical History Alcohol abuse Anxiety Smoker Tobacco abuse Home Medications NK 01/02/24 [History Last Taken Unknown] Allergy/AdvReac Type Severity Reaction Status Date / Time No Known Allergies Allergy Verified 01/02/24 13:06 Family History Other Alcoholism Anxiety Arthritis Surgical History Hx of eye surgery Social History Smoking Status: Former smoker ROS Constitutional Constitutional: Denies chills, fatigue, fever(s) or malaise Eyes Eyes: Denies blurry vision ENT HEENT: Denies headache(s) or nasal discharge Cardiovascular Cardiovascular: Reports chest pain; Denies dyspnea on exertion or syncope Respiratory/Chest Respiratory/Chest: Denies cough, shortness of breath at rest or shortness of breath with exertion Gastrointestinal Gastrointestinal: Reports nausea and vomiting; Denies constipation or diarrhea Genitourinary Genitourinary: Denies dysuria Neurologic Neurologic: Denies focal weakness, numbness or tremor(s) Psychiatric Psychiatric: Reports anxiety; Denies depression Vital Signs Vital Signs Vital Signs: 01/02/24 13:06 01/02/24 13:12 01/02/24 14:01 Temperature 98.7 F Temperature Source Temporal Pulse Rate 117 H 114 H Respiratory Rate 20 H 18 Respiratory Effort Normal Non-Labored Blood Pressure 158/110 H 150/95 H Blood Pressure Mean 126 113 Pulse Ox 10 98 Oxygen Delivery Method Room Air Room Air 01/02/24 15:00 01/02/24 13:30 01/02/24 16:00 Temperature Temperature Source Pulse Rate 120 H 112 H Respiratory Rate 18 20 H Respiratory Effort Blood Pressure 153/110 H 152/103 H Blood Pressure Mean 124 119 Pulse Ox 98 95 Oxygen Delivery Method Room Air Room Air Room Air 01/02/24 17:00 Temperature Temperature Source Pulse Rate 105 H Respiratory Rate 14 Respiratory Effort Blood Pressure 146/101 H Blood Pressure Mean 116 Pulse Ox 97 Oxygen Delivery Method Room Air Weight Weight: 157 lb 3.033 oz Body Mass Index (BMI) 21.9 Physical Exam Narrative General: Alert, Oriented x3, Cooperative, No apparent distress, restless HEENT: Atraumatic, PERRLA, EOMI, Normocephalic Oral: Moist Mucosa Neck: Supple, No JVD Lungs: Clear to auscultation, Normal air movement, No rhonchi, No wheeze, No rales Cardiovascular: Tachycardic, Regular Rhythm, Normal S1, Normal S2, No murmurs Abdomen: Soft, Non Tender, Non-Distended, palpable liver edge 4 to 5 cm below rib cage Extremities: No edema, Capillary Refill Less than 3 Seconds Skin: No rashes, No breakdown Musculoskeletal: No Tenderness to Palpation of Joints or Extremities Neurological: No focal neurological deficits, Motor Exam 5/5 strength throughout, Sensory exam intact to light touch and pain Psych/Mental Status: Flat, anxious Results Lab / Micro Data 01/02/24 13:36 01/02/24 13:36 Labs: Laboratory Results - last 24 hr 01/02/24 13:36: WBC 7.7, RBC 4.00 L, Hgb 13.9, Hct 39.3 L, MCV 98.3 H, MCH 34.8 H, MCHC 35.4, RDW Std Deviation 48.6 H, RDW Coeff of Lance 13.5, Plt Count 210, MPV 9.2, Immature Gran % (Auto) 0.300, Neut % (Auto) 82.9 H, Lymph % (Auto) 6.7 L, [place] % (Auto) 9.6, Eos % (Auto) 0.0, Baso % (Auto) 0.5, Absolute Neuts (auto) 6.4, Absolute Lymphs (auto) 0.52 L, Nucleated RBC % 0, PT 13.7, INR 1.1, Sodium 134 L, Potassium 3.0 L, Chloride 96 L, Carbon Dioxide 27.0, Anion Gap 11, BUN 5 L, Creatinine 0.64 L, Estim Creat Clear Calc 170.20, Est GFR (MDRD) Af Amer 188, Est GFR (MDRD) Non-Af 155, BUN/Creatinine Ratio 7.8 L, Glucose 113 H, Calcium 8.7, Total Bilirubin 1.90 H, Direct Bilirubin 1.06 H, AST 495 H, ALT 188 H, Alkaline Phosphatase 221 H, Troponin I High Sens 7, Total Protein 7.6, Albumin 3.7, Globulin 3.9, Ethyl Alcohol 103.0 01/02/24 14:38: Urine Opiates Screen NEGATIVE, Urine Methadone Screen NEGATIVE, Ur Barbiturates Screen NEGATIVE, Ur Phencyclidine Scrn NEGATIVE, Ur Amphetamines Screen NEGATIVE, MDMA (Ecstasy) Screen NEGATIVE, U Benzodiazepines Scrn NEGATIVE, Urine Cocaine Screen NEGATIVE, U Cannabinoids Screen NEGATIVE, Ur Drug Screen Comment 01/02/24 16:00: Troponin I High Sens 8 Rhythm Strip Rhythm Strip: Sinus Rhythm Rate: 95 Ectopy: None Imaging Radiology Impression Chest X-Ray 01/02/24 13:45 IMPRESSION: The lungs are clear. Dextroscoliosis of the thoracic spine. Electronically Signed: Adam Roman MD at 14:03 EDT Reading Location ID and State: [facility] / [place] , Service support , Assessment & Plan Assessment/Plan (1) Acute alcoholic hepatitis: (2) Alcohol withdrawal: PLAN: Plan 1. Alcohol withdrawal with alcoholic hepatitis and elevated LFTs ? Will likely need outpatient monitoring of his liver ? Continue with the alcohol withdrawal protocol ? Will repeat CMP in the morning ? Denies any other drug use ? Will have him follow-up with [facility] to develop a discharge plan DVT: Ambulation Charges/Coding Visit Charges Inpatient E&M: 12430 Init Hosp L2
[2024-01-02] MEDS: Phenobarbital 32.4 MG Tablet 64.8 MG PO ×2 (18:54→22:23)
[2024-01-02] MEDS: Dicyclomine 10 MG Capsule 20 MG PO (18:54)
[2024-01-02] MEDS: Gabapentin 300 MG Capsule PO (18:54)
[2024-01-02] MEDS: Ondansetron 8 MG Tablet PO (18:59)
[2024-01-02] MEDS: hydrOXYzine PAM 25 MG Capsule 50 MG PO (22:23)
[2024-01-02] MEDS: traZODone 100 MG Tablet PO (22:23)
[2024-01-03 02:00] VITALS: BP 149/97; PULSE 99; RESP 18; TEMP 36.7; O2SAT 99
[2024-01-03] MEDS: Phenobarbital 32.4 MG Tablet 64.8 MG PO ×6 (02:28→22:44)
[2024-01-03] MEDS: hydrOXYzine PAM 25 MG Capsule 50 MG PO ×2 (02:28→11:05)
[2024-01-03] MEDS: Ibuprofen 200 MG Tablet PO ×2 (02:28→22:58)
[2024-01-03 06:00] VITALS: BP 147/107; PULSE 90; RESP 16; TEMP 36.9; O2SAT 99
[2024-01-03] MEDS: Thiamine Hydrochloride 100 MG Tablet PO (07:59)
[2024-01-03] MEDS: Folic Acid 1 MG Tablet PO (07:59)
[2024-01-03 08:45] LABS: ALB/GLOB Ratio 0.9 RATIO (0.9-2.4); AST(SGOT) 368 U/L (15-37); Alanine Aminotransfer ALT/SGPT 148 U/L (16-61); Albumin, Serum 3.2 g/dL (3.2-5.0); Alkaline Phosphatase 191 U/L (45-117); Anion Gap 4 (5-15); BUN 7 mg/dL (7-18); Calcium,Total 8.5 mg/dL (8.5-10.1); Chloride 99 mmol/L (98-107); Creatinine, Serum 0.78 mg/dL (0.70-1.30); EST Glomerular Filtration Rate 124 mL/min (>60); Est Glom Filt Rate - Afr Amer 150 mL/min (>60); Estimated Creatinine Clearance 139.65 ml/min; Globulin 3.4 g/dL (2.2-4.2); Glucose 81 mg/dL (74-106); Potassium 3.7 mmol/L (3.5-5.1); Protein, Total 6.6 g/dL (6.4-8.2); Sodium Level 134 mmol/L (136-145)
[2024-01-03 10:00] VITALS: BP 144/103; PULSE 99; RESP 16; TEMP 36.9; O2SAT 98
[2024-01-03] MEDS: Gabapentin 300 MG Capsule PO (11:05)
--- NOTE | 2024-01-03 13:13 | ADDICTION ---
This play writer met with PT to conduct ASAM, MSE, AUDIT assessments and to plan for d/c. PT A+Ox4 and participated actively. All assessments completed. This is Pt's 3rd time in detox. He reports that he did not do any follow up previously. I informed Pt he will need to follow up with treatment or his recommended level of care may be higher the next time he admits to detox. He was agreeable and reports that he will follow up with [facility] and do a treatment program. PT did not indicate a need for transportation post d/c from [facility].
[2024-01-03 14:00] VITALS: BP 150/114; PULSE 96; RESP 18; TEMP 36.8; O2SAT 98
--- NOTE | 2024-01-03 15:57 | PN.HOSP_ITS ---
Reason for Visit Reason for Visit: Diagnoses Alcohol use, unspecified with withdrawal, unspecified (01/02/24) Alcoholic hepatitis without ascites (01/02/24) Subjective Subjective Patient was seen and examined today, he complains about being sleepy but otherwise he has no specific complaints. Objective Data Objective Data Vital Signs: Vital Signs Temp Pulse Resp BP Pulse Ox O2 Del Method 98.2 F 96 18 150/114 H 98 Room Air 01/03/24 14:00 01/03/24 14:00 01/03/24 14:00 01/03/24 14:00 01/03/24 14:00 01/03/24 14:00 Oxygen Delivery Method Room Air Weight: 71.3 kg Body Mass Index (BMI) 21.9 Intake & Output: Intake and Output for Last 24 Hours 01/01/24 01/02/24 01/03/24 23:59 23:59 23:59 Intake Total 100 / 100 950 / 950 Balance 100 / 100 950 / 950 Lab / Micro Data 01/02/24 13:36 01/03/24 06:33 Labs: Laboratory Results - last 24 hr 01/02/24 13:36: PT 13.7, INR 1.1 01/02/24 16:00: Troponin I High Sens 8 01/03/24 06:33: Sodium 134 L, Potassium 3.7, Chloride 99, Carbon Dioxide 31.0, A nion Gap 4 L, BUN 7, Creatinine 0.78, Estim Creat Clear Calc 139.65, Est GFR (MDRD) Af Amer 150, Est GFR (MDRD) Non-Af 124, BUN/Creatinine Ratio 9.0 L, Glucose 81, Calcium 8.5, Total Bilirubin 3.10 H, AST 368 H, ALT 148 H, Alkaline Phosphatase 191 H, Total Protein 6.6, Albumin 3.2, Globulin 3.4, Albumin/Globulin Ratio 0.9 Rhythm Strip Rhythm Strip: Sinus Rhythm Rate: 95 Ectopy: None Physical Exam Const alert, oriented x3, no apparent distress, average body habitus and healthy appearing General Appearance: cooperative, well kempt and well developed Orientation / Consciousness: awake, oriented to person, oriented to place and oriented to time HEENT normocephalic and moist oral mucous membranes Eyes PERRL, EOMs intact bilaterally and conjunctivae normal Neck supple, no JVD, thyroid normal and no carotid bruits General: trachea midline Resp normal respiratory effort, no retractions, no use of accessory muscles and clear to auscultation bilaterally Auscultation: Negative for rales, rhonchi or wheezes Cardio regular rate, regular rhythm, S1 normal heart sound, S2 normal heart sound, no murmurs, no rub and no gallops GI normal to inspection, nondistended, normoactive bowel sounds, soft to palpation, non-tender and non-distended Extremity no clubbing, cyanosis or edema Skin no rashes or lesions noted General Skin Exam: no breakdown Neuro oriented x3, CN's II-XII intact bilaterally, moves all extremities, no focal motor deficits and no sensory deficits noted Sensorium / Orientation: awake, alert, oriented to person, oriented to place and oriented to time Speech: speech normal Psych affect normal Assessment & Plan Assessment/Plan (1) Alcohol withdrawal: PLAN: Plan 1. Acute alcohol withdrawal-patient will remain on his present medications, he does not seem symptomatic at this time #2 acute alcoholic hepatitis-liver profile will be checked tomorrow #3 chronic alcoholism-patient states he was to do an outpatient follow-up when he was released in the hospital. #4 hypokalemia-corrected at this time Total clinical time spent by myself addressing the patient's medical issues, rev iewing all of his data, and collaborating with patient's care team: 35 minutes Charges/Coding Visit Charges Inpatient E&M: 25524 Subs Hosp L2
[2024-01-03 18:00] VITALS: BP 159/124; PULSE 96; RESP 18; TEMP 36.9; O2SAT 98
[2024-01-03 22:38] VITALS: BP 154/108; PULSE 107; RESP 18; TEMP 36.5; O2SAT 100
[2024-01-03] MEDS: 0.9% Saline Lock 10 ML Syringe IV (22:43)
[2024-01-03] MEDS: traZODone 100 MG Tablet PO (22:49)
[2024-01-03] MEDS: Dicyclomine 10 MG Capsule 20 MG PO (22:50)
[2024-01-04 02:09] VITALS: BP 140/109; PULSE 117; RESP 18; TEMP 36.6; O2SAT 99
[2024-01-04] MEDS: Phenobarbital 32.4 MG Tablet 64.8 MG PO ×3 (02:12→09:28)
[2024-01-04] MEDS: Folic Acid 1 MG Tablet PO (09:28)
[2024-01-04] MEDS: Thiamine Hydrochloride 100 MG Tablet PO (09:28)
[2024-01-04] MEDS: Gabapentin 300 MG Capsule PO ×2 (09:33→22:39)
[2024-01-04] MEDS: Dicyclomine 10 MG Capsule 20 MG PO ×2 (09:33→22:38)
[2024-01-04 10:00] VITALS: BP 137/103; PULSE 98; RESP 13; TEMP 36.6; O2SAT 100
--- NOTE | 2024-01-04 12:54 | PCM.PN.HOSP ---
Reason for Visit Reason for Visit: Diagnoses Alcohol use, unspecified with withdrawal, unspecified (01/02/24) Alcoholic hepatitis without ascites (01/02/24) Subjective Subjective Patient was seen and examined today, he remains drowsy, I have decided to taper his phenobarb downward and monitor him for any signs of withdrawal. Objective Data Objective Data Vital Signs: Vital Signs Temp Pulse Resp BP Pulse Ox O2 Del Method 97.9 F 98 13 137/103 H 100 Room Air 01/04/24 10:00 01/04/24 10:00 01/04/24 10:00 01/04/24 10:00 01/04/24 10:00 01/04/24 10:00 Oxygen Delivery Method Room Air Weight: 71.3 kg Body Mass Index (BMI) 21.9 Intake & Output: Intake and Output for Last 24 Hours 01/02/24 01/03/24 01/04/24 23:59 23:59 23:59 Intake Total 100 / 100 2450 / 2450 600 / 600 Balance 100 / 100 2450 / 2450 600 / 600 Lab / Micro Data 01/02/24 13:36 01/03/24 06:33 Rhythm Strip Rhythm Strip: Sinus Rhythm Rate: 95 Ectopy: None Physical Exam Const alert, oriented x3, no apparent distress and average body habitus General Appearance: cooperative, well kempt and well developed Orientation / Consciousness: awake, oriented to person, oriented to place and oriented to time HEENT normocephalic, head/scalp atraumatic and moist oral mucous membranes Eyes PERRL, EOMs intact bilaterally and conjunctivae normal Neck supple, no JVD, thyroid normal and no carotid bruits General: trachea midline Resp normal respiratory effort and clear to auscultation bilaterally Auscultation: Negative for rales, rhonchi or wheezes Cardio regular rate, regular rhythm, no murmurs, no rub and no gallops GI normal to inspection, nondistended, normoactive bowel sounds, soft to palpation, non-tender and non-distended Extremity no clubbing, cyanosis or edema Skin no rashes or lesions noted General Skin Exam: no breakdown Neuro oriented x3, CN's II-XII intact bilaterally, no focal motor deficits and no sensory deficits noted Sensorium / Orientation: awake and alert Speech: speech normal Psych affect normal Assessment & Plan Assessment/Plan (1) Alcohol dependence: (2) Alcohol withdrawal: PLAN: Plan 1. Acute alcohol withdrawal-patient's phenobarbital was reduced, he will be observed for any evidence of increased withdrawal symptoms #2 acute alcoholic hepatitis-liver profile will be checked tomorrow #3 chronic alcoholism-patient states he was to do an outpatient follow-up when he was released in the hospital. #4 hypokalemia-corrected at this time Total clinical time spent by myself addressing the patient's medical issues, reviewing all of his data, and collaborating with patient's care team: 35 minutes Charges/Coding Visit Charges Inpatient E&M: 08987 Subs Hosp L2
[2024-01-04 14:00] VITALS: BP 143/107; PULSE 91; RESP 14; TEMP 36.6; O2SAT 99
[2024-01-04] MEDS: Bisacodyl 5 MG Tablet 10 MG PO (14:26)
[2024-01-04] MEDS: Phenobarbital 32.4 MG Tablet PO ×2 (14:26→22:39)
[2024-01-04 22:25] VITALS: BP 151/120; PULSE 102; RESP 16; TEMP 36.8; O2SAT 99
[2024-01-04] MEDS: traZODone 100 MG Tablet PO (22:38)
[2024-01-05 02:19] VITALS: BP 145/105; PULSE 92; RESP 16; TEMP 37; O2SAT 99
[2024-01-05 02:20] VITALS: PULSE 92
[2024-01-05] MEDS: Phenobarbital 32.4 MG Tablet PO ×3 (05:03→22:13)
[2024-01-05] MEDS: Gabapentin 300 MG Capsule PO ×3 (06:40→22:17)
[2024-01-05 06:45] LABS: AST(SGOT) 210 U/L (15-37); Alanine Aminotransfer ALT/SGPT 139 U/L (16-61); Albumin, Serum 3.3 g/dL (3.2-5.0); Alkaline Phosphatase 213 U/L (45-117); Globulin 4.1 g/dL (2.2-4.2); Protein, Total 7.4 g/dL (6.4-8.2)
[2024-01-05] MEDS: Folic Acid 1 MG Tablet PO (08:15)
[2024-01-05] MEDS: Thiamine Hydrochloride 100 MG Tablet PO (08:15)
[2024-01-05 08:19] VITALS: BP 142/95; PULSE 87; RESP 15; TEMP 36.7; O2SAT 99
[2024-01-05] MEDS: hydrOXYzine PAM 25 MG Capsule 50 MG PO ×2 (12:27→22:13)
--- NOTE | 2024-01-05 12:35 | PN.HOSP_ITS ---
Reason for Visit Reason for Visit: Diagnoses Alcohol dependence, uncomplicated (01/02/24) Alcohol use, unspecified with withdrawal, unspecified (01/02/24) Alcoholic hepatitis without ascites (01/02/24) Subjective Subjective Patient was seen and examined today, he still appears sleepy, I asked him if he was having any nervousness or anxiety and he stated no. I decreased the patient's phenobarbital yesterday to 3 times a day and at a lower dose, I will further decrease his phenobarbital today to twice a day. Patient's liver enzymes have improved today with the exception of the alkaline phosphatase. Objective Data Objective Data Vital Signs: Vital Signs Temp Pulse Resp BP Pulse Ox O2 Del Method 98.1 F 87 15 142/95 H 99 Room Air 01/05/24 08:19 01/05/24 08:19 01/05/24 08:19 01/05/24 08:19 01/05/24 08:19 01/05/24 08:19 Oxygen Delivery Method Room Air Weight: 71.3 kg Body Mass Index (BMI) 21.9 Intake & Output: Intake and Output for Last 24 Hours 01/03/24 01/04/24 01/05/24 23:59 23:59 23:59 Intake Total 2450 / 2450 1100 / 1100 300 / 300 Balance 2450 / 2450 1100 / 1100 300 / 300 Lab / Micro Data 01/02/24 13:36 01/03/24 06:33 Labs: Laboratory Results - last 24 hr 01/05/24 05:41: Total Bilirubin 1.60 H, Direct Bilirubin 1.00 H, AST 210 H, ALT 139 H, Alkaline Phosphatase 213 H, Total Protein 7.4, Albumin 3.3, Globulin 4.1 Rhythm Strip Rhythm Strip: Sinus Rhythm Rate: 95 Ectopy: None Physical Exam Const alert, oriented x3, no apparent distress and healthy appearing General Appearance: cooperative, well kempt and well developed Orientation / Consciousness: awake, oriented to person, oriented to place and oriented to time HEENT normocephalic, head/scalp atraumatic and moist oral mucous membranes Eyes PERRL, EOMs intact bilaterally and conjunctivae normal Neck supple, no JVD, thyroid normal and no carotid bruits General: trachea midline Resp normal respiratory effort and clear to auscultation bilaterally Auscultation: Negative for rales, rhonchi or wheezes Cardio regular rate, regular rhythm, no murmurs, no rub and no gallops GI normal to inspection, nondistended, normoactive bowel sounds, soft to palpation, non-tender and non-distended Extremity no clubbing, cyanosis or edema Skin no rashes or lesions noted General Skin Exam: no breakdown Neuro oriented x3, CN's II-XII intact bilaterally, no focal motor deficits and no sensory deficits noted Sensorium / Orientation: awake, alert, oriented to person, oriented to place and oriented to time Speech: speech normal Psych affect normal Assessment & Plan Assessment/Plan (1) Alcohol dependence: (2) Alcohol withdrawal: PLAN: Plan 1. Acute alcohol withdrawal-patient's phenobarbital was reduced, he will be obs erved for any evidence of increased withdrawal symptoms #2 acute alcoholic hepatitis-liver profile today was improved, I do not feel he needs repeat liver profile testing tomorrow. #3 chronic alcoholism-patient states he was to do an outpatient follow-up when he was released in the hospital. #4 hypokalemia-corrected at this time Total clinical time spent by myself addressing the patient's medical issues, reviewing all of his data, and collaborating with patient's care team: 25 minutes Charges/Coding Visit Charges Inpatient E&M: 69243 Subs Hosp L1
[2024-01-05] MEDS: Ibuprofen 200 MG Tablet PO (13:00)
[2024-01-05] MEDS: Dicyclomine 10 MG Capsule 20 MG PO (13:01)
[2024-01-05 14:00] VITALS: BP 128/77; PULSE 63; RESP 15; TEMP 36.6; O2SAT 97
[2024-01-05] MEDS: traZODone 100 MG Tablet PO (22:13)
[2024-01-05 22:24] VITALS: BP 148/85; PULSE 98; RESP 18; TEMP 37.1; O2SAT 97
[2024-01-06] MEDS: hydrOXYzine PAM 25 MG Capsule 50 MG PO ×3 (02:37→19:43)
[2024-01-06] MEDS: Phenobarbital 32.4 MG Tablet PO ×3 (05:22→22:39)
[2024-01-06 05:27] VITALS: BP 154/97; PULSE 105; RESP 18; TEMP 37.1; O2SAT 98
[2024-01-06 08:41] VITALS: BP 140/104; PULSE 119; RESP 18; TEMP 36.3; O2SAT 94
--- NOTE | 2024-01-06 08:43 | DS.PCM_ITS ---
Providers Date of Admission: 01/02/24 Date of Discharge: 01/07/24 Primary Care Physician: Kaia Primary Care Phys Reason For Visit: ETOH DETOX Diagnosis Discharge Diagnosis (1) Alcohol dependence: Status: Acute Code(s): F10.20 - Alcohol dependence, uncomplicated (2) Alcohol withdrawal: Status: Acute Code(s): F10.939 - Alcohol use, unspecified with withdrawal, unspecified Medications at Discharge Home Medications NK 01/02/24 Hospital Course Summary of Care Provided Minutes Spent on Discharge: 35 Hospital Course: Patient is a 28-year-old gentleman with history of chronic alcohol dependence admitted with acute alcohol withdrawal 1. Acute alcohol withdrawal ? Patient admitted to a monitored bed managed with phenobarb taper 2. Acute alcoholic hepatitis ? Did monitor plans for patient to follow-up with primary care physician 3. Hypokalemia ? Corrected per protocol 4. Lower extremity paresthesias ? Did obtain MRI of the back as well as B12 levels prior to patient being discha rged ? MRI demonstrated; Mild bilateral facet hypertrophy and ligament flavum hypertrophy. 2 mm retrolisthesis of L5 on S1 with a mild broad disc protrusion producesfinal steno sis with moderate bilateral lateral recess stenosis withabutment of the S1 nerve roots bilaterally and mild bilateral neural foraminal stenosis.Patient was referred to Dr. Gamez on discharge Physical Exam Narrative GENERAL: cooperative HEENT: Atraumatic; normocephalic EYES; Anicteric, Normal Conjunctiva NECK; supple, normal thyroid, RESPIRATORY: Diminished to auscultation CARDIOVASCULAR: Regular S1 S2, GI: soft, normoactive bowel sounds, : No Renal angle tenderness; EXTREMITIES: No edema, no clubbing, MUSCULOSKELETAL: no muscle wasting NEURO: Awake; no lateralizing signs. SKIN: No Rash PSYCH; Flat affect Weight / BMI Weight Weight: 71.3 kg Body Mass Index (BMI) 21.9 ABG / Lab / Microbiology Data 01/02/24 13:36 01/03/24 06:33 D/C Instructions Discharge Diet: No restrictions Discharge Activity: Return to Normal Activity Call your doctor if you observe: Fever of 101 or Higher, Shortness of breath, Fainting spells and Chest pain Meaningful Use Info Meaningful Use Diagnoses (Choose all that apply): None applicable Discharge Plan Admission Admit Date/Time: 01/02/24 17:52 Attending Provider: Saeed Jimenez Primary Care Provider: Care Physician,No Primary Consulting Providers: Tony Beard Mark Discharge Orders/Prescriptions Prescriptions: No Action NK Referrals / Follow Up: Benji Gamez MD [Med Staff - Active Staff] - Within 2 Weeks Care Physician,No Primary [Primary Care Provider] - [facility] [Non-Staff] - As soon as possible Disposition Disposition (needs filled in before D/C Order can be placed): Home, Self Care Charges/Coding Visit Charges Inpatient E&M: 60415 Disch Hosp >30min
[2024-01-06] MEDS: Folic Acid 1 MG Tablet PO (08:47)
[2024-01-06] MEDS: Thiamine Hydrochloride 100 MG Tablet PO (08:47)
--- NOTE | 2024-01-06 09:09 | MRI_ITS ---
STUDY: MRI LUMBAR SPINE WITHOUT CONTRAST REASON FOR EXAM: Male, 28 years old. Paresthesias TECHNIQUE: Standardized fat and water weighted pulse sequences were obtained in the sagittal and axial planes. COMPARISON: None FINDINGS: T12-L1: Normal endplates. Normal disc height, hydration and morphology. Normal bilateral facet joints. Normal central canal and bilateral lateral recesses. Normal bilateral intervertebral neural foramina. Normal lumbar lordosis. There is a dextroscoliosis of the thoracolumbar spine. Normal conus medullaris that terminates at the L1/L2. L1-2: Normal endplates. Normal disc height, hydration and morphology. Normal bilateral facet joints. Normal central canal and bilateral lateral recesses. Normal bilateral intervertebral neural foramina. L2-3: Normal endplates. Normal disc height, hydration and morphology. Normal bilateral facet joints. Normal central canal and bilateral lateral recesses. Normal bilateral intervertebral neural foramina. L3-4: Some disc desiccation but no disc protrusion, spinal stenosis, or neural foraminal stenosis. L4-5: Normal endplates. Normal disc height, hydration and morphology. Normal bilateral facet joints. Normal central canal and bilateral lateral recesses. Normal bilateral intervertebral neural foramina. L5-S1: Mild bilateral facet hypertrophy and ligament flavum hypertrophy. 2 mm retrolisthesis of L5 on S1 with a mild broad disc protrusion produces final stenosis with moderate bilateral lateral recess stenosis with abutment of the S1 nerve roots bilaterally and mild bilateral neural foraminal stenosis. Normal visualized sacral ala. Normal visualized paraspinous soft tissue structures. MRI/Spine Lumbar (Routine) IMPRESSION: 1. Focal degenerative disc disease at L5/S1 as described above. 2. Dextroscoliosis of the thoracic lumbar spine. Electronically Signed: Jamari La MD at 21:19 EDT ,
--- NOTE | 2024-01-06 09:28 | CASEMGMT ---
WALTER PIRES into pt room, pt provided a local healthcare directory list. Pt denies need for WALTER PIRES to set up appt. Pt states his parents are medical and he would like to speak with them regarding the list and will set up on his own. No further needs at this time.
[2024-01-06 10:06] LABS: Vitamin B12 552 pg/mL (211-911)
[2024-01-06 14:16] VITALS: BP 158/108; PULSE 94; RESP 18; TEMP 36.8; O2SAT 98
--- NOTE | 2024-01-06 14:53 | CHAPLAIN ---
Type of Pastoral Visit _x__ Initial Visit ___ Follow-up Visit ___ On-call Visit ___ General Patient Visit ___ Spiritual Assessment ___ Family Conference ___ Bereavement ___ Rapid Response ___ Code Blue ___ Other (describe below) Pastoral Care Referral From _x__ Patient ___ Family ___ Nurse ___ Physician ___ Commercial Marketing Specialist ___ Director Of Critical Care ___ Other (describe below) Sacrament/Intervention _x__ Active listening ___ Anointing ___ Restorationism ___ Bereavement ___ Communion _x__ Gretta exploration ___ _x__ Life review _x__ Prayer ___ Reconciliation ___ Sacrament of Sick _x__ Supportive presence ___ Wedding ___ Other (describe below) Pastoral Comments patient remembers this senior product marketing manager from previous admission; pt acknowledges that things got overwhelming and i went back to some old ways; pt has support but says I have to prove myself worthy of it to get that help; pt states that I need to have better coping; discussion on his thoughts on coping and what can be helpful to improve his life and abilities; pt admits that he wants gretta and scientology attendance to increase; pt welcomes presence and prayer for support today
[2024-01-06] MEDS: Dicyclomine 10 MG Capsule 20 MG PO (19:42)
[2024-01-06] MEDS: Ibuprofen 200 MG Tablet PO (19:43)
[2024-01-06 19:46] VITALS: BP 143/105; PULSE 59; RESP 16; TEMP 36.9; O2SAT 97
[2024-01-06] MEDS: Gabapentin 300 MG Capsule PO (22:39)
[2024-01-06] MEDS: traZODone 100 MG Tablet PO (22:39)
[2024-01-07] MEDS: hydrOXYzine PAM 25 MG Capsule 50 MG PO (06:06)
[2024-01-07] MEDS: Dicyclomine 10 MG Capsule 20 MG PO (06:07)
[2024-01-07] MEDS: Phenobarbital 32.4 MG Tablet PO (06:07)
[2024-01-07 06:14] VITALS: BP 153/106; PULSE 96; RESP 16; TEMP 36.6; O2SAT 97
--- NOTE | 2024-01-07 07:23 | PCM.PN.HOSP ---
Reason for Visit Reason for Visit: Diagnoses Alcohol dependence, uncomplicated (01/02/24) Alcohol use, unspecified with withdrawal, unspecified (01/02/24) Alcoholic hepatitis without ascites (01/02/24) Subjective Subjective Late entry note for 01/06/2024; plan also patient to have been discharged home however he did complain of bilateral lower extremity numbness necessitating subsequent evaluation with B12 level as well as MRI being ordered Objective Data Objective Data Vital Signs: Vital Signs Temp Pulse Resp BP Pulse Ox O2 Del Method 98 F 96 16 153/106 H 97 Room Air 01/07/24 06:14 01/07/24 06:14 01/07/24 06:14 01/07/24 06:14 01/07/24 06:14 01/07/24 06:14 Oxygen Delivery Method Room Air Weight: 71.3 kg Body Mass Index (BMI) 21.9 Intake & Output: Intake and Output for Last 24 Hours 01/05/24 01/06/24 01/07/24 23:59 23:59 23:59 Intake Total 300 / 300 Balance 300 / 300 Lab / Micro Data 01/02/24 13:36 01/03/24 06:33 Labs: Laboratory Results - last 24 hr 01/05/24 05:41: Vitamin B12 552 Radiography Diagnostic Testing: Radiology Impression Lumbar Spine MRI 01/06/24 09:09 IMPRESSION: 1. Focal degenerative disc disease at L5/S1 as described above. 2. Dextroscoliosis of the thoracic lumbar spine. Electronically Signed: Jamari La MD at 21:19 EDT , Rhythm Strip Rhythm Strip: Sinus Rhythm Rate: 95 Ectopy: None Physical Exam Narrative GENERAL: cooperative HEENT: Atraumatic; normocephalic EYES; Anicteric, Normal Conjunctiva NECK; supple, normal thyroid, RESPIRATORY: Diminished to auscultation CARDIOVASCULAR: Regular S1 S2, GI: soft, normoactive bowel sounds, : No Renal angle tenderness; EXTREMITIES: No edema, no clubbing, MUSCULOSKELETAL: no muscle wasting NEURO: Awake; no lateralizing signs. SKIN: No Rash PSYCH; Flat affect Assessment & Plan Assessment/Plan (1) Alcohol dependence: (2) Alcohol withdrawal: PLAN: Plan Patient is a 28-year-old gentleman with history of chronic alcohol dependence admitted with acute alcohol withdrawal 1. Acute alcohol withdrawal ? Patient admitted to a monitored bed managed with phenobarb taper 2. Acute alcoholic hepatitis ? Did monitor plans for patient to follow-up with primary care physician 3. Hypokalemia ? Corrected per protocol 4. Lower extremity paresthesias ? Did obtain MRI of the back as well as B12 levels prior to patient being discharged Time spent in the patient's overall evaluation,decision-making process, review of diagnostic data, adjustment of management, discussion with other providers, nursing nursing and ancillary staff involved in patient's care documentation, 35 Minutes Charges/Coding Visit Charges Inpatient E&M: 82035 Subs Hosp L2
[2024-01-07 08:30] VITALS: BP 139/90; PULSE 100; RESP 18; TEMP 37; O2SAT 98
[2024-01-07] MEDS: Thiamine Hydrochloride 100 MG Tablet PO (08:34)
[2024-01-07] MEDS: Folic Acid 1 MG Tablet PO (08:34)
== END 2024-01-07 10:54 | disposition home or self-care (01) | DRG 897 ==
LOC: ED 16:15 → MS3 18:19
PROVIDERS: Internal Medicine; Admitting Provider Family Medicine; Emergency Provider Emergency Medicine; Visit Provider Internal Medicine
DX: F10.239 Alcohol dependence with withdrawal, unspecified (principal); E87.6 Hypokalemia; K70.10 Alcoholic hepatitis without ascites; M48.08 Spinal stenosis, sacral and sacrococcygeal region; M43.17 Spondylolisthesis, lumbosacral region; Z87.891 Personal history of nicotine dependence; Y90.5 Blood alcohol level of 100-119 mg/100 ml
CPT/HCPCS: 36415; 71045; 72148; 80048; 80053; 80076; 80307; 80320; 82607; 84484; 85025; 85610; 93005; 97802; 99285; J7030; A4216; G0480; J2405

== ENCOUNTER 2024-03-12 13:00 | Outpatient (RCR) | payer SELFPAY ==
--- NOTE | 2024-01-23 18:21 | HP.PTEVAL ---
Patient's Visit Information Visit Information Visit Information: TERESA LARIOS is a 28 year old M referred to Physical Therapy by Dr. Benji Gamez MD with a diagnosis of DDD Lumbar. Date of Evaluation: 01/23/24 Physical Therapist: Lazaro Kaufman DPT, OCS, CSCS Visit Plan Frequency: 1x/Week Duration: 4-6 Weeks Plan: weekly(pt choice due to insurance) for 4-6 as needed for. 1 IE PPU, HS and quad stretches and please montior tolerance to these. 2. next session progress to other core mobility(yoga) and core strength table for HEP instruct then LE strength squats, HR, RDL, step ups and postural pulls...postural correction and body mechanics. Subjective Subjective: Has scoliosis diagnosed at 12. Recently has numbness and tightness anteriorly down to feet and been that way for a month. Was having back pain with it but it is better. Back hurt LB without obvious reason. Had MRI which showed compressed disc. Used rest adn OTC and not helping. Worse with lying down , standing is better. Sitting is not rterrible unless he sits too long. Sleeping is OK but getting to sleep uncomfortable. Weakness in legs and arms a little bit. Toes 50 # BOXES AT WORK, WORKS AT [employer] 8 hr shifts. Worse after work more on feet. 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 Basic All [place], tougher than it used to be. Hobbies are playing guitar and that is uncomfy but he can do it. Pain LB: Pain Intensity (Out of 10): 3 Pain Intensity Range: 0 and 4 Comment: worse with lying at night on back. Objective Objective: R rib hump mid thoracic adn R concavity scoiliosis in thoracic spine noticeable. Lumbar ext max limited 65 degrees prone and painful centrally, SB OK, flexion OK HS and quads max stiff Improved ext ROM with repeated PPU with less pain. Still tightness in stomach. Hip and knee and ankle AROM WFL outside of tightness. reflexes 2/3 patella and aachilles Sensation LE and trunk WNL to gross light touch. Strength hips 4- flexion and abd and 3+ ext. Knees 4- ext adn 4- flexion B. ankles 4 B. - SLR, - slump PA pressure is slight painful centrally. Balance/Special Test Scores Oswestry Low Back Score: 19 Goals Goal 1:: Get to sleep comfortably at night Goal Time Frame: 4-6 Weeks Goal 2:: I appropriate HEP to limit future problems Goal Time Frame: 4-6 Weeks Goal 3:: Pain 0-2/10 at all times and 80% better Goal Time Frame: 4-6 Weeks Goal 4:: oswestry score 8 or better Goal Time Frame: 4-6 Weeks Rehabilitation Potential Physical Therapy Diagnosis: limited ROM, weakness in legs and core and tightness in upper legs effecting comfortable funciton Rehabilitation Potential: Fair Anticipated Interventions Patient/Client Instruction: Educate patient on: Condition and Plan of Care For the Purpose of:: To decrease pain, To increase ROM, To improve nutrient delivery to tissue, To improve muscle performance and motor function and To increase tolerance to activity/condition/position Therapeutic Exercise to Include: Strength training, Balance training, Flexibilty training, Passive ROM, Active ROM and Dynamic Lumbar Stabilization For the Purpose of:: To decrease pain, To increase ROM, To improve nutrient delivery to tissue, To improve muscle performance and motor function, To increase tolerance to activity/condition/position and To improve ability of physical actions for home/community/work/leisure Text: Thank you for the opportunity to evaluate your patient. For Medicare and Medicare HMO plans, please review the plan of care and approve it. It will need to be FAXED BACK to us at [phone] for Medicare purposes. For Medicare only, by signing this I certify the plan of care. Please let me know if there are questions or concerns regarding this plan of care. Physician Signature: Date:
--- NOTE | 2024-04-29 07:32 | HP.PTDCNRP_ITS ---
Patient Information Patient Information: TERESA LARIOS was seen in my office for initial evaluation on 01/23/24. The following Plan of Care was established for this patient: POC Established Initial Frequency: 1x/Week Initial Duration: 4-6 Weeks Anticipated Interventions Patient/Client Instruction: Educate patient on: Condition and Plan of Care For the Purpose of:: To decrease pain, To increase ROM, To improve nutrient delivery to tissue, To improve muscle performance and motor function and To increase tolerance to activity/condition/position Therapeutic Exercise to Include: Strength training, Balance training, Flexibilty training, Passive ROM, Active ROM and Dynamic Lumbar Stabilization For the Purpose of:: To decrease pain, To increase ROM, To improve nutrient delivery to tissue, To improve muscle performance and motor function, To increase tolerance to activity/condition/position and To improve ability of phys ical actions for home/community/work/leisure Last Seen Last Seen: This patient was last seen in our office 03/12/24. Pertinent comments regarding their Physical therapy will appear below: Pt seen 3 visits of HEP progressions and was 20% better. he did not show for his last recheck and at this point, it has been over 6 weeks and I will discontinue due to nonattendance. At this point I will be discontinuing this patient from physical therapy. I would be happy to see this patient again in the future if found appropriate by the physician. Thank you! Lazaro Kaufman, DPT, OCS, CSCS Balance/Gait/Functional tests Balance/Special Test Scores Oswestry Low Back Score: 19
== END 2024-03-12 19:00 | disposition home or self-care (01) ==
LOC: PT 13:00
PROVIDERS: Referring Provider Orthopaedic Surgery Orthopaedic Surgery of the Spine; Visit Provider Orthopaedic Surgery Orthopaedic Surgery of the Spine
DX: M51.36 Other intervertebral disc degeneration, lumbar region (principal)
CPT/HCPCS: 97110; 97161